=== PATIENT | female | born 1945 | race Caucasian/White ===

== ENCOUNTER 2019-12-24 10:18 | Outpatient (CLI) | payer MEDICARE, SELFPAY ==
--- NOTE | 2019-12-24 10:25 | MM_ITS ---
WS: [id number] BILATERAL SCREENING DIGITAL MAMMOGRAM WITH CAD HISTORY: SCREENING COMPARISON: 12/01/2018 and 13/03/2017 Bilateral CC and MLO views submitted. Computer aided detection analyzed. Breast composition: There are scattered areas of fibroglandular density. No suspicious masses, microc alcifications or architectural distortion. Numerous benign calcifications scattered over each breast. MM/[id number] IMPRESSION: BI-RADS: 2-Benign FOLLOW UP: 1 Year Follow-up
== END 2019-12-24 10:19 | disposition home or self-care (01) ==
LOC: RADSHAW 10:24
PROVIDERS: Family Provider Nurse Practitioner Family; PCP Family Medicine; Visit Provider Nurse Practitioner Family
DX: Z12.31 Encounter for screening mammogram for malignant neoplasm of breast (principal)
CPT/HCPCS: 77067

== ENCOUNTER 2020-02-16 09:12 | Outpatient (CLI) | payer MEDICARE, SELFPAY ==
--- NOTE | 2020-02-16 09:28 | US_ITS ---
WS: [id number] Gallbladder ultrasound, 02/16/2020 Clinical Data: ABD PAIN Comparison: Gallbladder ultrasound, 08/29/2015. Findings: The gallbladder shows no sludge or stone. The wall measures 0.2 cm with no pericholecystic fluid. The common bile duct is 0.4 cm and there are no intrahepatic ductal abnormalities. Liver shows no cysts, masses or dilated intrahepatic ducts. The pancreas is obscured by overlying bowel gas but no cyst, pseudocyst, or evidence of pancreatitis is noted. Right kidney measures 3.95 x 4.29 x 10.3 cm and no cyst, masses or hydronephrosis can be seen. The aorta and inferior vena cava show no vascular abnormalities. US/US abdomen limited [id number] Impression: Negative gallbladder ultrasound.
== END 2020-02-16 09:13 | disposition home or self-care (01) ==
LOC: US 09:15
PROVIDERS: Family Provider Nurse Practitioner Family; PCP Nurse Practitioner Family; Visit Provider Nurse Practitioner Family
DX: R10.11 Right upper quadrant pain (principal)
CPT/HCPCS: 76705

== ENCOUNTER 2020-05-19 09:57 | Outpatient (CLI) | payer MEDICARE, SELFPAY ==
--- NOTE | 2020-05-19 10:41 | MR_ITS ---
WS: [id number] MRI LUMBAR SPINE NONCONTRAST TECHNIQUE: Sagittal T1, T2 and STIR imaging. Axial T1 and T2 imaging. CLINICAL INFORMATION: PAIN OF LUMBAR REGION WITH SCIATICA COMPARISON: None. FINDINGS: Moderate lumbar curve convex right. No acute compression. Slight retrolisthesis L2 on L3, L3 on L4, a nd L4 on L5. No acute compression fractures. L1-L2: Mild disc bulging with slight effacement of ventral thecal sac. Small right foraminal protrusi on with mild right foraminal narrowing. Mild facet arthropathy. Spinal canal is patent. L2-L3: Mild disc bulging with slight effacement of ventral thecal sac. Mild facet arthropathy. Spinal canal and foramen are patent. L3-L4: Disc osteophyte complex with endplate ridging. Slight retrolisthesis L3 on L4. Moderate centra l canal stenosis. Impingement subarticular recess bilaterally. Moderate left and no significant right foraminal narrowing. Moderate facet arthropathy. L4-L5: Mild disc bulging and osteophytic ridging. Slight effacement of ventral thecal sac. Moderate c entral canal stenosis. Impingement traversing right L5 nerve root. Moderate right and no significant left foraminal narrowing. Moderate facet arthropathy with ligament flavum hypertrophy. L5-S1: Mild disc bulging with osteophytic ridging. Impingement on the traversing S1 nerve roots bilat erally. Moderate facet arthropathy with small facet effusions. Moderate right and no significant left foraminal narrowing. Visualized pelvic bony structures: Normal. Paravertebral soft tissues: Normal. Anterior interbody cervical fusion C4-C6 MR/MR lumbar spine wo con* [id number] IMPRESSION: 1. Mild lumbar curve. No acute compression. 2. Moderate central canal stenosis L3-L4 and L4-L5. Mild central canal stenosi s L5-S1. 3. Impingement on the subarticular recess right L3-4, right L4-5, and right gr eater than left L5-S1. 4. Mild to moderate foraminal narrowing worse at left L3-4, right L4-5 and rig ht greater than left L5-S1. 5. Moderate to advanced facet arthropathy L5-S1 with small facet effusions.
== END 2020-05-19 09:58 | disposition home or self-care (01) ==
LOC: RADWPI 10:01
PROVIDERS: Family Provider Nurse Practitioner Family; PCP Nurse Practitioner Family; Visit Provider Nurse Practitioner Family
DX: M54.40 Lumbago with sciatica, unspecified side (principal)
CPT/HCPCS: 72148

== ENCOUNTER 2020-05-25 12:44 | Outpatient (CLI) | payer MEDICARE, SELFPAY ==
--- NOTE | 2020-05-25 12:52 | XR_ITS ---
WS: [id number] LATERAL LUMBAR SPINE: 3 view. Lateral radiographs are performed in upright neutral, flexion and extension to the patient's toleranc e. HISTORY: Low back pain COMPARISON: None available. Severe degenerative disc disease and facet joint arthritis throughout the lumbar spine. L3 retrolisthesis x 10.4 mm with no change with flexion and extension. 2 mm retrolisthesis of L2 and L4 with no instability. L5 anterolisthesis by 4 mm with no instability. XR/XR lumbar spine f/e only [id number] IMPRESSION: 1. Retrolisthesis of L3 x 10.4 mm with no instability. 2. Anterolisthesis of L5 with no instability. 3. Advanced degenerative changes throughout the lumbar spine.
== END 2020-05-25 12:45 | disposition home or self-care (01) ==
LOC: RADWPI 12:50
PROVIDERS: Family Provider Nurse Practitioner Family; PCP Nurse Practitioner Family; Visit Provider Licensed Practical Nurse
DX: M48.062 Spinal stenosis, lumbar region with neurogenic claudication; M51.17 Intervertebral disc disorders with radiculopathy, lumbosacral region
CPT/HCPCS: 72120

== ENCOUNTER → 2020-07-05 09:20 | Outpatient (BNVA) | payer MEDICARE, SELFPAY | PROVIDERS: Family Provider Nurse Practitioner Family; PCP Nurse Practitioner Family; Referring Provider Specialist; Visit Provider Anesthesiology Pain Medicine | DX: M48.062 Spinal stenosis, lumbar region with neurogenic claudication (principal); M47.816 Spondylosis without myelopathy or radiculopathy, lumbar region; M43.16 Spondylolisthesis, lumbar region; M51.36 Other intervertebral disc degeneration, lumbar region; M51.17 Intervertebral disc disorders with radiculopathy, lumbosacral region; Z98.890 Other specified postprocedural states; Z79.891 Long term (current) use of opiate analgesic | CPT/HCPCS: 99205 ==

== ENCOUNTER → 2020-07-11 14:27 | Outpatient (BNVA) | payer MEDICARE, SELFPAY | PROVIDERS: Family Provider Nurse Practitioner Family; PCP Nurse Practitioner Family; Visit Provider Anesthesiology Pain Medicine | DX: M51.17 Intervertebral disc disorders with radiculopathy, lumbosacral region (principal); M48.062 Spinal stenosis, lumbar region with neurogenic claudication; M54.9 Dorsalgia, unspecified; Z79.891 Long term (current) use of opiate analgesic | CPT/HCPCS: 64483; 64484; J1030; J3490 ==

== ENCOUNTER → 2020-07-26 13:15 | Outpatient (BNVA) | payer MEDICARE, SELFPAY | PROVIDERS: Family Provider Nurse Practitioner Family; PCP Nurse Practitioner Family; Visit Provider Anesthesiology Pain Medicine | DX: M48.062 Spinal stenosis, lumbar region with neurogenic claudication (principal); M54.9 Dorsalgia, unspecified; Z79.891 Long term (current) use of opiate analgesic | CPT/HCPCS: 64483; 64484; J1040; J3490 ==

== ENCOUNTER → 2020-08-09 09:12 | Outpatient (BNVA) | payer MEDICARE, SELFPAY | PROVIDERS: Family Provider Nurse Practitioner Family; PCP Nurse Practitioner Family; Visit Provider Anesthesiology Pain Medicine | DX: M48.062 Spinal stenosis, lumbar region with neurogenic claudication (principal); M47.816 Spondylosis without myelopathy or radiculopathy, lumbar region; M51.36 Other intervertebral disc degeneration, lumbar region; M43.16 Spondylolisthesis, lumbar region; M51.17 Intervertebral disc disorders with radiculopathy, lumbosacral region; Z98.890 Other specified postprocedural states | CPT/HCPCS: 99212 ==

== ENCOUNTER → 2020-10-23 07:59 | Outpatient (BNVA) | payer MEDICARE, SELFPAY | PROVIDERS: Family Provider Nurse Practitioner Family; PCP Nurse Practitioner Family; Visit Provider Specialist | DX: M48.062 Spinal stenosis, lumbar region with neurogenic claudication (principal); M47.816 Spondylosis without myelopathy or radiculopathy, lumbar region; M43.16 Spondylolisthesis, lumbar region; G57.32 Lesion of lateral popliteal nerve, left lower limb | CPT/HCPCS: 95886; 95909; 99202; G0463 ==

== ENCOUNTER 2020-11-20 09:56 | Outpatient (CLI) | payer MEDICARE, SELFPAY ==
--- NOTE | 2020-11-20 10:09 | MR_ITS ---
WS: [id number] MRI LUMBAR SPINE NONCONTRAST TECHNIQUE: Sagittal T1, T2 and STIR imaging. Axial T1 and T2 imaging. CLINICAL INFORMATION: INTERVERTEBRAL DISC DISORDER WITH RADICULOPATHY, LUMBAR COMPARISON: MRI May 19, 2020 FINDINGS: Mild lumbar curve. Lumbar curve convex right. Alignment is unchanged from previous. No acute compress ion fractures. Slight retrolisthesis L2 on L3, L3 on L4, L4 on L5 unchanged. No high-grade central ca nal stenosis. L1-L2: Mild annular bulging. Slight narrowing of the subarticular recess bilaterally. Mild facet arth ropathy. Spinal canal and foramen are patent. L2-L3: Mild disc bulging with narrowing of the left subarticular recess. Mild central canal stenosis. Moderate facet arthropathy. Foramen are patent. Slight retrolisthesis unchanged. L3-L4: Disc desiccation. Disc osteophytic ridging results in moderate central canal stenosis. Impinge ment on the right greater than left subarticular recess. Moderate right and mild left bony foraminal narrowing. L4-L5: Mild disc bulging with endplate ridging. Mild central canal stenosis. Impingement on the trave rsing right greater than left L5 nerve roots. Moderate facet arthropathy. Moderate right and mild lef t bony foraminal narrowing. L5-S1: Disc osteophyte complex with endplate ridging. Impingement on the traversing S1 nerve roots bi laterally. Moderate bilateral foraminal narrowing. Small facet effusions. Advanced facet arthropathy . Anterior cervical fusion C4-C6. MR/MR lumbar spine wo con* [id number] IMPRESSION: 1. Mild lumbar curve. No acute compression. 2. Moderate central canal stenosis L3-4 and L4 on L5 unchanged. Impingement on the right articular recess L4-5. 3. Moderate right L3-4, right L4-5, and moderate bilateral L5-S1 foraminal dixon rowing. 4. Advanced facet arthropathy L5-S1 with small facet effusions similar in appe delontee. 5. Slight retrolisthesis L2 on L3 and L3 on L4 unchanged from previous.
== END 2020-11-20 09:57 | disposition home or self-care (01) ==
LOC: RADWPI 10:02
PROVIDERS: PCP Nurse Practitioner Family; Visit Provider Specialist
DX: M51.16 Intervertebral disc disorders with radiculopathy, lumbar region (principal); M48.061 Spinal stenosis, lumbar region without neurogenic claudication; M25.80 Other specified joint disorders, unspecified joint; M48.07 Spinal stenosis, lumbosacral region; M47.897 Other spondylosis, lumbosacral region
CPT/HCPCS: 72148

== ENCOUNTER → 2021-03-30 13:10 | Outpatient (BNVA) | payer MEDICARE, SELFPAY | PROVIDERS: PCP Nurse Practitioner Family; Visit Provider Surgery | DX: Z01.812 Encounter for preprocedural laboratory examination (principal); Z20.822 Contact with and (suspected) exposure to COVID-19 | CPT/HCPCS: 87635 ==

== ENCOUNTER 2021-04-03 07:48 | Day surgery (SDC) | payer MEDICARE, SELFPAY ==
--- NOTE | 2021-03-23 13:42 | SUR.PREOP ---
[id number] spoke with pt and when asked if she had a covid test,stated no one told her she had to have one prior to surgery,call to dr holland's office and stated that his nurse was not in office and dr in wound care. Dr holland called at wound care and he stated that pt will need to be rescheduled due to this,pt called and informed of this and instructed to call dr Laboy office friday am and she verbalized understanding
[2021-04-02 10:33] VITALS: BMI 26.2
[2021-04-03] VITALS (7 sets, daily range): BP systolic 149–176; BP diastolic 77–96; PULSE 78–87; RESP 12–18; TEMP 36.3–37.1; O2SAT 93–99
[2021-04-03] MEDS: sodium chloride 0.9% 1,000 ML 30 ML IV (08:31)
[2021-04-03] MEDS: acetaminophen 1,000 MG/100 ML PIGGYBACK 400 MG IV (08:32)
--- NOTE | 2021-04-03 08:45 | P.ANESASSM_ITS ---
Pre-Anesthetic Assessment Pre-Anesthetic Assessment: Height/Weight: Height 1.5 m Weight 58.967 kg Temp Pulse Resp BP Pulse Ox 97.8 F 86 18 149/80 99 04/03/21 08:16 04/03/21 08:16 04/03/21 08:16 04/03/21 08:16 04/03/21 08:16 Preop Diagnosis: Bleeding hemorrhoids Proposed Procedure: Operation Date: 04/03/21 09:25 Proposed Procedures p Colonoscopy [id number] 67199 Z12.11 K64.9(Not Applicable) - Ramon Crum MD s Exam Under Anesthesia(Not Applicable) - Ramon Crum MD s Hemorroidectomy(Not Applicable) - Ramon Crum MD Familial anesthetic complications: PONV Was Beta Rhea taken within 24 hours: N/A Was Clonidine taken within 24 hours: N/A Last intake: Intake Last Liquid Date 04/02/21 Last Liquid Time 11:00 Last Solid Date 04/02/21 Last Solid Time 11:00 Social: Social History: No alcohol and No tobacco Exam: Pre-Anes Outpt Exam: alert, oriented x 3, clear to auscultation b ilaterally and regular rate & rhythm Airway: Cervical ROM: WNL MP: 2 Dentition: Full Neuropsych: Neuropsych: Neuropathy Anesthetic Plan: ASA status: 2 Anesthesia: General Risk of > 500 ml blood loss (7ml/kg in children): No Meds/Allergies Current Medications: Current Medications Generic Name Dose Route Start Last Admin Trade Name Freq PRN Reason Stop Dose Admin Sodium Chloride 1,000 mls @ 30 ml s/hr 04/03/21 08:15 04/03/21 08:31 Sodium Chloride 0.9% IV 04/04/21 08:14 30 mls/hr .Q24H LUNA Administration PFSH Anesthesia PFSH: Medical History Intervertebral disc disorder with radiculopathy of lumbosacral region Lumbar stenosis with neurogenic claudication Spondylolisthesis, lumbar region Surgical History H/O repair of right rotator cuff History of neck surgery 08/28/2017 C4-C5, C5-C6 ACDFF Family History Denies family history of Anesthesia complication Bleeding disorder Cancer Social History Smoking and tobacco status: never smoked Second hand smoke exposure: No Alcohol intake: never Household members: spouse Marital status: Current occupational status: retired History of recent travel: No Data Anesthesia Cardiac Studies: No Data to Display
--- NOTE | 2021-04-03 09:03 | W.PM.OPSUD ---
Surgery/Procedure H&P Update DATE OF PROCEDURE: April 03, 2021 DATE H&P PERFORMED: 03/19/21 H&P UPDATE INFORMATION: I have reviewed H&P completed within last 30 days, I have examined patient prior to procedure and No changes to prior documentation PREOP DIAGNOSIS: Bleeding hemorrhoids PRIMARY INDICATION FOR PROCEDURE: The same PLANNED PROCEDURE: Operation Date: 04/03/21 09:25 Proposed Procedures p Colonoscopy [id number] Z12.11 K64.9(Not Applicable) - Ramon Crum MD s Exam Under Anesthesia(Not Applicable) - Ramon Crum MD s Hemorroidectomy(Not Applicable) - Ramon Crum MD
[2021-04-03] MEDS: piperacillin-tazobactam 3.375 GM in sodium chloride 0.9% (plus) 50 ML IV (09:25)
--- NOTE | 2021-04-03 10:13 | PM.OP ---
Operative Report Date of procedure: April 03, 2021 Pre-op Diagnosis: Bleeding hemorrhoids Post-op diagnosis: same Post-op Diagnosis: Right lower lateral internal and external hemorrhoid Normal colonoscopy Fair colon prep Procedure Done: 1-Colonoscopy 2-Examination under anesthesia 3-Right lower lateral hemorrhoidectomy Specimens removed/disposition: Right lower lateral hemorrhoid Surgeon: Ramon Crum Stitcher Tape Controlled Machine: process control technician Danny and medical student Zoie Campos Circulating nurse Trice Yoder Anesthesia: General (GETA DIRECTOR DANCE Олег) Estimated blood loss (mL): 5 Condition: stable Disposition: same day Brief History: Bleeding per rectum with symptomatic hemorrhoids. Full H&P and informed consent per chart. Procedure: Patient was identified in the holding area, was taken to the OR placed first in supine position,IV antibiotics were given with induction time-out was done verifying the patient's name, date of , and procedure, all were in agreement. Intubated was placed by the anesthesia provider, patient was placed in left lateral position where all pressure points were padded. Right lower lateral hemorrhoid and a smaller left upper lateral hemorrhoid Following that a digital rectal examination was done, the colonoscope was then introduced via the anus under direct visualization, all the way to the cecum, prep of the colon was fair, there were no polyps identified or masses or diverticular disease or strictures, the scope was then retrieved back ,time for withdrawal exceeded 6 minutes, gas was deflated on the way out. Retroflex was done at the end showing showed right lower lateral internal hemorrhoid. Following that prep and drape of the perineum was done under the usual sterile technique 15 mL of Exparel injection was administered at the perianal area A lubricated self-retaining proctoscope was inserted, and a wet sponge to prevent any residual colon prep from contaminating the site of the excision, and under direct visualization I was able to hold onto the right lower lateral hemorrhoid using hemostats, dissection was carried by harmonic scalpel, hemorrhoidectomy was then achieved and the specimen was passed to the circulating nurse for permanent pathology. Following that a running 2-0 chromic catgut was done to approximate the edges of the hemorrhoid bed. Hemostasis was achieved, irrigation was done, sponge was retrieved. A piece of Surgicel /piece of Xeroform impregnated with lidocaine 2% jelly was placed in the anal canal, attached to 2-0 silk suture, to help retrieving it by the patient later on ABDs were applied followed by surgical pants Patient was repositioned to supine position, counts of instruments,needles and sponges were completed at the end of the procedure Patient was taken to the recovery area in stable condition I was present for the whole entire procedure
--- NOTE | 2021-04-03 10:29 | P.PCN_ITS ---
PACU note PACU note: VSS, Good respiratory effort, report to SENIOR INFORMATICA DEVELOPER Post-Anesthesia Exam: awake
--- NOTE | 2021-04-03 10:29 | PM.PACU ---
PACU note PACU note: VSS, Good respiratory effort, report to CRITICAL POWER TECHNICIAN Post-Anesthesia Exam: awake
--- NOTE | 2021-04-03 10:34 | SUR.PHASEI ---
1033- ORAL AIRWAY REMOVED, SAT 96% WITH ROOM AIR
--- NOTE | 2021-04-03 14:30 | ANE.PACU2 ---
Inpatient post-anesthesia follow up: Airway intact: Yes Vital signs: Temperature 97.8 F Pulse Rate 78 Respiratory Rate 18 Blood Pressure 151/77 Pulse Oximetry 97 Oxygen Delivery Me thod Room Air Oxygen Flow Rate Fraction of Inspir ed Oxygen Hydration adequate: Yes Nausea and vomiting: No Pain level: 2 Mental status: Baseline
== END 2021-04-03 11:33 | disposition home or self-care (01) ==
PROVIDERS: PCP Nurse Practitioner Family; Visit Provider Surgery
PROC: 0DJD8ZZ Inspection of Lower Intestinal Tract, Via Natural or Artificial Opening Endoscopic (ICD-10-PCS; CPT 45378; principal; 2021-04-03 09:15)
PROC: (CPT 46255; 2021-04-03 09:15)
PROC: (CPT 46255; 2021-04-03 09:15)
DX: K64.8 Other hemorrhoids (principal); K57.30 Diverticulosis of large intestine without perforation or abscess without bleeding
CPT/HCPCS: 46255; 88304; 96365; C9290; J0330; J1100; J2405; J2543; J2704; J3010; J3490; J7030

== ENCOUNTER 2021-06-14 13:07 | Outpatient (CLI) | payer MEDICARE, SELFPAY ==
--- NOTE | 2021-06-14 13:18 | XR_ITS ---
WS: [id number] Left leg including the tibia and fibula, AP and lateral views, 06/14/2021 Clinical Data: LT LEG PAIN Comparison: None. Findings: No fractures or dislocations are seen. The tibia and fibula are intact. The soft tissues are normal. No soft tissue mass is seen. The visualized left knee and left ankle are unremarkable. XR/XR tibia fibula LT 2V [id number] Impression: Negative left leg with no evidence of soft tissue abnormality.
== END 2021-06-14 13:08 | disposition home or self-care (01) ==
PROVIDERS: PCP Nurse Practitioner Family; Visit Provider Nurse Practitioner Family
DX: M79.605 Pain in left leg (principal)
CPT/HCPCS: 73590

== ENCOUNTER 2021-07-20 07:37 | Outpatient (CLI) | payer MEDICARE, SELFPAY ==
--- NOTE | 2021-07-20 07:49 | US_ITS ---
WS: [id number] ULTRASOUND SOFT TISSUES LEFT lower extremity. HISTORY: LEFT LEG PAIN COMPARISON: None available. TECHNIQUE: 2-D and color Doppler imaging is submitted. Palpable area over the anterior LEFT lower extremity is evaluated by ultrasound. There is a hypoechoi c ovoid solid nodule measuring 1.3 x 0.5 x 1.0 cm. No significant increased vascularity. This is a ve ry nonspecific nodule. US/US soft tissue/extremity [id number] IMPRESSION: Nonspecific hypoechoic nodule in the soft tissues of the anterior LEFT lower le g.
--- NOTE | 2021-07-20 08:35 | MM_ITS ---
WS: [id number] Exam: [id number] Date/Time of Exam: 07/20/2021 8:35 AM Reason For Exam: SCREENING VIEWS: MLO and CC views both breasts. Comparison made with prior exam of 10/27/2017, 12/01/2018 and 12/24/2019. Findings: There was no sign of mass, architectural distortion or suspicious calcification in either breast. Fa tty MM/[place] [id number] Impression: BI-RADS: 2-Benign FOLLOW-UP: 1 Year Follow-up This mammogram was also analyzed by the Computer Aided Detection System R2 Imag e [employer]sperson.
== END 2021-07-20 07:38 | disposition home or self-care (01) ==
LOC: RAD 07:54 → RADSHAW 08:29
PROVIDERS: PCP Nurse Practitioner Family; Visit Provider Nurse Practitioner Family
DX: Z12.31 Encounter for screening mammogram for malignant neoplasm of breast (principal); M79.605 Pain in left leg; R22.42 Localized swelling, mass and lump, left lower limb
CPT/HCPCS: 76882; 77067

== ENCOUNTER → 2023-09-29 14:37 | Outpatient (BNVA) | payer MEDICARE, SELFPAY | PROVIDERS: PCP Nurse Practitioner Family; Visit Provider Surgery | DX: R10.11 Right upper quadrant pain (principal); R11.2 Nausea with vomiting, unspecified | CPT/HCPCS: 99203 ==

== ENCOUNTER 2023-10-02 09:15 | Day surgery (SDC) | payer MEDICARE, SELFPAY ==
--- NOTE | 2023-10-02 09:43 | W.PM.OPSUD ---
Surgery/Procedure H&P Update DATE OF PROCEDURE: October 02, 2023 DATE H&P PERFORMED: 03/19/21 H&P UPDATE INFORMATION: I have reviewed H&P completed within last 30 days, I have examined patient prior to procedure, No changes to prior documentation and [place] is [place] [facility] indicated PLANNED PROCEDURE: Operation Date: 10/02/23 10:50 Proposed Procedures p EGD(Not Applicable) - eKith Meyer MD
[2023-10-02 09:49] VITALS: BP 179/94; PULSE 82; RESP 18; TEMP 36.2; O2SAT 97; BMI 25.2
[2023-10-02] MEDS: sodium chloride 0.9% 1,000 ML 30 ML IV (09:59)
--- NOTE | 2023-10-02 11:00 | ANES.PREANE2 ---
Pre-Anesthetic Assessment Height/Weight: Height 1.5 m Weight 56.699 kg Temp Pulse Resp BP Pulse Ox O2 Del Method 97.2 F L 82 18 179/94 97 Room Air 10/02/23 09:49 10/02/23 09:49 10/02/23 09:49 10/02/23 09:49 10/02/23 09:49 10/02/23 09:49 Preop Diagnosis: vomiting Operation Date: 10/02/23 10:50 Proposed Procedures p EGD(Not Applicable) - Keith Meyer MD Familial anesthetic complications: posy op nausea vomiting Was Beta Rhea taken within 24 hours: N/A Was Clonidine taken within 24 hours: N/A Last intake: Intake Last Liquid Date 10/01/23 Last Liquid Time 18:30 Last Solid Date 10/01/23 Last Solid Time 13:00 Social No alcohol and No tobacco smokes marijuana daily Exam alert, oriented x 3, clear to auscultation bilaterally and regular rate & rhythm Airway Submandibular: within normal limits Cervical ROM: within normal limits Mallampati: Class II Dentition: chipped and full History/ROS No significant complaints Pulmonary None reported CV/HEM None reported None reported Hepatic None reported GI Gastroesophageal Reflux Disease (controlled) Metabolic None reported Musc/skel Lower Back Pain and Osteoarthritis/DJD Anesthetic Plan ASA status: 2 Anesthesia: MAC Risk of > 500 ml blood loss (7ml/kg in children): No Medications/Allergies Home Medications Medication Instructions Recorded Confirmed Last Taken Type cholecalciferol (vitamin D3) 25 2,000 unit PO DAILY 12/01/19 10/02/23 10/01/23 History mcg (1,000 unit) capsule glucosamine HCl 1,500 mg tablet 1,500 mg PO DAILY 12/01/19 10/02/23 10/01/23 History ltszwgct-xkr-piwni acid 0.4 1 tab PO QAM 12/01/19 10/02/23 10/01/23 History mg-lycopene 300 mcg-lutein 250 mcg tablet (Centrum Silver) vitamin E mixed-tocotrienol 120 1 cap PO DAILY 12/01/19 10/02/23 10/01/23 History unit-17 mg capsule cyclobenzaprine 10 mg tablet 10 mg PO .TID PRN #21 tabs 01/26/20 10/02/23 04/02/21 Rx lisinopril 20 mg tablet 20 mg PO DAILY #90 tabs 01/28/20 10/02/23 10/01/23 Rx ondansetron HCl 4 mg tablet 4 mg PO Q8H 09/29/23 10/02/23 Unknown History pantoprazole 40 mg tablet,delayed 40 mg PO DAILY 10/01/23 10/02/23 10/01/23 History release tramadol 50 mg tablet 50 mg PO BID PRN Pain 10/01/23 10/02/23 10/01/23 History Allergies Allergy/AdvReac Type Severity Reaction Status Date / Time codeine Allergy Unknown Verified 09/29/23 14:42 gabapentin AdvReac Severe ADR-Nausea Verified 09/29/23 14:42 Current Medications Generic Name Dose Route Start Last Admin Trade Name Freq PRN Reason Stop Dose Admin Sodium Chloride 1,000 mls @ 30 mls/hr 10/02/23 09:45 10/02/23 09:59 Sodium Chloride 0.9% IV 10/03/23 09:44 30 mls/hr .Q24H LUNA Administration PFSH Anesthesia Medical History Bleeding hemorrhoids Intervertebral disc disorder with radiculopathy of lumbosacral region Lumbar stenosis with neurogenic claudication Spondylolisthesis, lumbar region Surgical History H/O repair of right rotator cuff History of neck surgery 08/28/2017 C4-C5, C5-C6 ACDFF Family History Denies family history of Anesthesia complication Bleeding disorder Cancer Social History Smoking and tobacco/nicotine status: never used tobacco/nicotine Second hand smoke exposure: No Alcohol intake: never Substance/Drug Use: never Household members: spouse Marital status: Current occupational status: retired Data Anesthesia Cardiac Studies: No Data to Display
[2023-10-02 12:32] VITALS: BP 125/74; PULSE 88; RESP 15; TEMP 36.3; O2SAT 95
[2023-10-02 12:47] VITALS: BP 159/80; PULSE 86; RESP 16; O2SAT 96
--- NOTE | 2023-10-02 12:58 | ANE.PACU2 ---
Inpatient post-anesthesia follow up: Airway intact: Yes Vital signs: Temperature 97.4 F Pulse Rate 86 Respiratory Rate 16 Blood Pressure 159/80 Pulse Oximetry 96 Oxygen Delivery Me thod Room Air Oxygen Flow Rate Fraction of Inspir ed Oxygen Hydration adequate: Yes Nausea and vomiting: No Pain level: 2 Mental status: Baseline
== END 2023-10-02 12:22 | disposition home or self-care (01) ==
PROVIDERS: PCP Nurse Practitioner Family; Visit Provider Surgery
PROC: 0DJ08ZZ Inspection of Upper Intestinal Tract, Via Natural or Artificial Opening Endoscopic (ICD-10-PCS; CPT 43235; principal; 2023-10-02 10:50)
DX: R11.10 Vomiting, unspecified (principal); K44.9 Diaphragmatic hernia without obstruction or gangrene; K21.9 Gastro-esophageal reflux disease without esophagitis; K29.50 Unspecified chronic gastritis without bleeding
CPT/HCPCS: 43239; 88305; 88342; J2704; J7030

== ENCOUNTER 2024-02-07 09:59 | Inpatient (IN) | payer MEDICARE, SELFPAY ==
[2024-02-07] VITALS (8 sets, daily range): BP systolic 105–171; BP diastolic 63–104; PULSE 80–116; RESP 14–18; TEMP 36.4–37; O2SAT 93–98; BMI 24.2
--- NOTE | 2024-02-07 10:01 | XRR_ITS ---
PROCEDURE INFORMATION: Exam: XR Right Femur Exam date and time: 02/07/2024 10:11 AM Age: 78 years old Clinical indication: Injury or trauma; Fall; Blunt trauma; Thigh or upper leg; Right; Additional info: Pain TECHNIQUE: Imaging protocol: Radiologic exam of the right femur. Views: 2 views. COMPARISON: CR XR hip RT 2-3V wo/w pel* [id number] 02/07/2024 10:11 AM FINDINGS: Bones/joints: Osteopenia. Acute subcapital fracture of the right femoral neck with moderate superior translation of the femoral shaft. No dislocation. Mild right hip joint osteoarthrosis. No erosive or destructive change. No lytic or blastic lesion. Soft tissues: Grossly unremarkable. XR/XR femur RT min 2V* [id number] IMPRESSION: 1. Right femoral neck fracture, as described above. 2. Additional findings, as above.
--- NOTE | 2024-02-07 10:01 | XRR_ITS ---
PROCEDURE INFORMATION: Exam: XR Right Hip Exam date and time: 02/07/2024 10:11 AM Age: 78 years old Clinical indication: Injury or trauma; Fall; Blunt trauma (contusions or hematomas); Right; Hip TECHNIQUE: Imaging protocol: Radiologic exam of the right hip. Views: 1 view hip with pelvis when performed. COMPARISON: CR XR femur RT min 2V* [id number] 02/07/2024 10:11 AM FINDINGS: Bones/joints: Osteopenia. Acute subcapital fracture of the right femoral neck with moderate superior translation of the femoral shaft. No dislocation. Mild right hip joint osteoarthrosis. No erosive or destructive change. No lytic or blastic lesion. Degenerative changes of the lower lumbar spine, right sacroiliac joint and pubic symphysis. Soft tissues: Grossly unremarkable. XR/XR hip RT 2-3V wo/w pel* [id number] IMPRESSION: 1. Right femoral neck fracture, as described above. 2. Additional findings, as above.
--- NOTE | 2024-02-07 10:02 | ECG_ITS ---
[facility] Test Date: 2024-02-07 Pat Name: Anyi Conrad Department: Room: Gender: Female Network Designer: : 1945 Requested By: Jem Roque Order Number: [id number] Dory MD: Tim Arita M.D. Measurements Intervals Annabella Rate: 102 P: 60 WY: 142 QRS: -6 QRSD: 89 T: 11 QT: 357 QTc: 467 Interpretive Statements SINUS TACHYCARDIA WITH FREQUENT VENTRICULAR PREMATURE COMPLEXES ABNORMAL RHYTHM ECG Compared to ECG 08/22/2017 09:33:40 Ventricular premature complex(es) now present Sinus rhythm no longer present Electronically Signed On 02-08-2024 21:32:34 CDT by Tim Arita M.D. [email or web address]
--- NOTE | 2024-02-07 10:10 | CT_ITS ---
WS: [id number] CT CERVICAL SPINE HISTORY: trauma TECHNIQUE: Contiguous 2.0 mm axial imaging performed through the entire cervical spine. Sagittal and coronal reformats also performed. All CT scans at [facility] use at least one of these dose o ptimization techniques: automated exposure control; mA and/or kV adjustment per patient size (include s targeted exams where dose is matched to clinical indication); or iterative reconstruction. DLP: 1574.32 mGy.cm COMPARISON: 10/22/2017 Anterior cervical fusion from C4-C7 with interbody spacers. No acute fractures. Facet joints are norm ally aligned. Craniocervical junction is normal. Lateral masses are aligned of C1 and C2. The odontoi d process is intact. C2-C3: Normal. C3-C4: Mild RIGHT foraminal narrowing due to osteophyte. C4-C5: Mild osteophytic ridging with bilateral foraminal stenosis. C5-C6: Osteophytic ridging with bilateral foraminal stenosis, LEFT greater than RIGHT. C6-C7: Moderate osteophytic ridging. Mild central and moderate foraminal stenosis. C7-T1: Mild foraminal stenosis. Paraseptal emphysema at the lung apices. Small amount of calcium in the aorta. IMPRESSION: 1. No acute cervical spine fracture. 2. Prior anterior cervical fusion from C4-C7 with interbody spacers.
--- NOTE | 2024-02-07 10:11 | CT_ITS ---
WS: [id number] CT HEAD NONCONTRAST HISTORY: trauma TECHNIQUE: Contiguous axial imaging performed through the brain in 2.5 mm imaging. Bone and soft tiss ue windows. Sagittal and coronal reformats reviewed. All CT scans at [facility] use at least one of these dose optimization techniques: automated exposure control; mA and/or kV adjustment per pa tient size (includes targeted exams where dose is matched to clinical indication); or iterative recon struction. DLP: 1574.32 mGy.cm COMPARISON: 08/15/2015 No acute intracranial hemorrhage, midline shift or mass effect. Mild atrophy and small vessel ischemic disease surrounding the ventricles. No prior infarcts. Ventricles: Mild ventricular dilatation on the basis of atrophy. Paranasal sinuses: As visualized are clear. Mastoid air cells: Well pneumatized. Calvarium and scalp: Skull is intact with no soft tissue edema or swelling. IMPRESSION: 1. No acute intracranial hemorrhage or edema. 2. Mild cerebral atrophy and small vessel ischemic disease.
--- NOTE | 2024-02-07 10:11 | XRR_ITS ---
PROCEDURE INFORMATION: Exam: XR Left Knee Exam date and time: 02/07/2024 10:19 AM Age: 78 years old Clinical indication: Injury or trauma; Fall; Blunt trauma; Knee; Left TECHNIQUE: Imaging protocol: Radiologic exam of the left knee. Views: 3 views. COMPARISON: US soft tissue/extremity [id number] 07/20/2021 8:09 AM FINDINGS: Bones/joints: Osteopenia. No radiographic evidence of acute fracture or dislocation. Alignment anatomic. Minimal patellofemoral osteoarthrosis. Minimal medial and lateral compartment osteophytosis. No significant effusion. Soft tissues: Grossly unremarkable. XR/XR knee LT 3V* [id number] IMPRESSION: No acute radiographic findings.
--- NOTE | 2024-02-07 10:11 | XRR_ITS ---
PROCEDURE INFORMATION: Exam: XR Chest Exam date and time: 02/07/2024 10:22 AM Age: 78 years old Clinical indication: Injury or trauma; Fall; Cough and dyspnea; Blunt trauma (contusions or hematomas); Additional info: Dyspnea/cough TECHNIQUE: Imaging protocol: Radiologic exam of the chest. Views: 1 view. COMPARISON: CR XR chest 2V* [id number] 08/22/2017 9:36 AM FINDINGS: Lungs: Unremarkable. No consolidation. Pleural spaces: Unremarkable. No pleural effusion. No pneumothorax. Heart/Mediastinum: Unremarkable. No cardiomegaly. Bones/joints: Osteopenia. Mild degenerative changes. Suture anchor in the right humeral head. Partially visualized anterior cervical fixation hardware. XR/XR chest 1V portable [id number] IMPRESSION: No acute radiographic findings.
--- NOTE | 2024-02-07 10:12 | ED_ITS ---
HPI - Extremity Problem 2 General: Chief complaint: Extremity Injury, Lower Stated complaint: RIGHT FEMUR PAIN S/P FALL Time Seen by Provider: 02/07/24 10:01 Source: patient Mode of arrival: EMS History of Present Illness: 78-year-old female brought in by EMS. 3 days ago she had a fall on the stairs and was unable to stand after the fall she was found prone she been trying to crawl back up the stairs to get to her phone but was not able to do so. She denies loss of consciousness she is complaining of right hip pain left knee pain generalized myalgias throughout. She is not on any anticoagulants. She does have a history of hypertension she is on lisinopril but has not taken any of her medications for the last 4 days. She has shortening and external rotation of her right hip. She was given Dilaudid and Zofran and nebulized ketamine and route. No vomiting no diarrhea no chest pain no abdominal pain no shortness of breath MD Complaint: joint pain Onset (ago): day(s) (3) Pain Consistency: constant Location: right (hip) Quality: sharp Radiation: none Relieving factors: nothing Exacerbating factors: nothing Associated symptoms: Deny arthralgias, chest pain, fever(s), myalgias, rash or short of breath Review of Systems 2 Const: Denies: fever(s) or chills Card: Denies: chest pain Resp: Denies: dyspnea GI: Denies: abdominal pain : Denies: dysuria, urinary frequency or urinary urgency Musc: Reports: joint pain; Denies: neck pain or back pain Skin/Breast: Denies: rash PFSH ED 2 PFSH: Medical History Bleeding hemorrhoids Spondylolisthesis, lumbar region Lumbar stenosis with neurogenic claudication Intervertebral disc disorder with radiculopathy of lumbosacral region Surgical History History of neck surgery 08/28/2017 C4-C5, C5-C6 ACDFF H/O repair of right rotator cuff Family History Denies family history of Anesthesia complication Bleeding disorder Cancer Social History (Reviewed 02/07/24 @ 10:12 by GATO Caballero Smoking and tobacco/nicotine status: never used tobacco/nicotine Second hand smoke exposure: No Alcohol intake: never Substance/Drug Use: never Household members: spouse Marital status: Current occupational status: retired Physical Exam 2 Const: GENERAL APPEARANCE: cooperative ORIENTATION/CONSCIOUSNESS: Yes awake, Yes oriented to person, Yes oriented to place and Yes oriented to time HENMT: COMMON NORMALS: normocephalic, atraumatic and hearing grossly normal bilaterally HEAD & SCALP: normocephalic and atraumatic Resp: COMMON NORMALS: normal respiratory effort, No retractions, No use of accessory muscles and clear to auscultation bilaterally AUSCULTATION: clear to auscultation bilaterally Cardio: COMMON NORMALS: regular rate, regular rhythm and No murmurs present (Cardio) RATE: regular rate RHYTHM: regular rhythm GI: COMMON NORMALS: Soft to palpation and No hepatosplenomegaly present A USCULTATION: Yes normoactive bowel sounds PALPATION: Yes Soft to palpation, No Tenderness to palpation present (GI), No Guarding due to palpation present (GI) and Yes No hepatosplenomegaly present Extremity: COMMON NORMALS: normal to inspection, capillary refill normal, no clubbing, cyanosis or edema, no calf tenderness and no pedal edema OTHER: External rotation and shortening of the right leg no other deformities no skin breakdown or ulceration noted Neuro: SENSORIUM/ORIENTATION: Yes oriented to person, Yes oriented to place and Yes oriented to time Skin: COMMON NORMALS: no rashes or lesions noted GENERAL SKIN EXAM: no rashes or lesions noted Course 2 Vital Signs: Vital signs: Vital Signs Temperature 97.7 F 02/07/24 10:01 Pulse Rate 94 02/07/24 12:47 Respiratory Rate 18 02/07/24 12:47 Blood Pressure 154/97 02/07/24 12:47 Pulse Oximetry 95 02/07/24 12:47 Oxygen Delivery Me thod Room Air 02/07/24 12:47 MDM - Extremity (Nontraumatic) Medical Decision Making Patient is a right subtrochanteric hip fracture is result of a fall on the plain film without any seen an intertrochanteric component of the CT does not show any fracture in the trochanter. Will admit. splint to the right forearm for the distal radius fracture. Randolph placed. pain medicines given Medical Records I reviewed the patient's medical records. Lab Data I reviewed the patient's lab results. 02/07/24 11:13 02/07/24 11:13 Radiology Impressions Venous Duplex 02/07/24 10:25 IMPRESSION: No sonographic evidence of deep vein thrombosis. All radiology interpretation(s) finalized by discharge Discharge Plan Discharge Patient Disposition: Admitted As Inpatient Admit Provider: Maddi Jaime Clinical Impression: Closed subcapital fracture of neck of right femur, Distal radius fracture, right, Rhabdomyolysis Condition: Stable Coding Level of Care Code ED Quality Systems Specialist for Shayna Thomason
--- NOTE | 2024-02-07 10:25 | USR_ITS ---
PROCEDURE INFORMATION: Exam: US Duplex Lower Extremity Veins, Bilateral Exam date and time: 02/07/2024 12:08 PM Age: 78 years old Clinical indication: Edema, localized; Lower extremity, bilateral; Additional info: Leg edema TECHNIQUE: Imaging protocol: Real-time duplex ultrasound of the bilateral extremities with 2-D calloway scale, color Doppler flow and spectral waveform analysis including responses to compression and other maneuvers (when performed) with image documentation. Complete exam focused on the lower extremity veins. COMPARISON: US soft tissue/extremity [id number] 07/20/2021 8:09 AM FINDINGS: Right deep veins: Unremarkable. The common femoral, femoral, proximal profunda femoral, popliteal and peroneal veins are patent without thrombus. Normal Doppler waveforms. Normal compressibility and/or augmentation response. Left deep veins: Unremarkable. The common femoral, femoral, popliteal and peroneal veins are patent without thrombus. Normal Doppler waveforms. Normal compressibility and/or augmentation response. Superficial veins: Greater saphenous veins at the saphenofemoral junctions are patent bilaterally without thrombus. Soft tissues: Unremarkable. US/CV venous duplex [facility] [id number] IMPRESSION: No sonographic evidence of deep vein thrombosis.
--- NOTE | 2024-02-07 10:25 | CT_ITS ---
[facility]AST HISTORY: hip fx Technique: All CT scans at [facility] use at least one of these dose optimization techniques: automated exposure control; mA and/or kV adjustment per patient size (includes targeted exams where dose is matched to clinical indication); or iterative reconstruction. DLP: 234.41 mGy.cm COMPARISON: Radiograph 02/07/2024 Acute comminuted fracture involving the femoral neck of the RIGHT hip. There is impaction along the f racture line and valgus deformity. Lateral displacement by approximately 10 mm the distal fragment al yoseph with impaction. There are a few small osseous fragments along the fracture line. The acetabulum i s normal. Moderate amount of periarticular hematoma surrounding the fracture. Randolph catheter is present in the urinary bladder. IMPRESSION: Acute femoral neck fracture with impaction and lateral displacement.
[2024-02-07 11:07] LABS: Add Urine Culture? No; Add Urine Microscopic? YES; Bacteria Urine TRACE /hpf; Bilirubin Urine Neg (Negative); Blood Urine Trace (Negative); Glucose Urine UA Norm (Normal); Ketones Urine 2+ (Negative); Leukocyte Esterase Urine Negative (Negative); Nitrate Urine Negative (Negative); Protein Urine 1+ (Negative); RBC Urine 0-4 /hpf (0-2); Squamous Epithelial Cell Urine RARE /hpf (0-5); Urine Appearance Clear (CLEAR); Urine Color Dark Yellow (Yellow); Urobilinogen Urine Norm (Negative); WBC Urine 0-4 /hpf (0-5); pH Urine 5 (5-7)
[2024-02-07 11:20] LABS: Basophils # 0.1 10^3/uL (0.0-0.1); Basophils % 0.3 %; Hematocrit 43.2 % (36-47); Lymphocytes # 1.6 10^3/uL (0.8-4.8); Lymphocytes % 8.8 %; Mean Corpuscular HGB Conc 32.9 g/dL (30-55); Mean Corpuscular Volume 94.3 fl (85-98); Mean Platelet Volume 10.3 fL (7.4-10.4); Monocytes % 10.9 %; Neutrophils # 14.39 10^3/uL (1.8-7.7); Neutrophils % 79.5 %; Nucleated Red Blood Cells % 0 %; Platelet Count 279 10^3/cmm (157-399); Red Blood Count 4.58 10^6/uL (3.85-5.65); Red Cell Distribution Width 15.1 % (12.1-15.1)
--- NOTE | 2024-02-07 11:33 | XRR_ITS ---
PROCEDURE INFORMATION: Exam: XR Right Hand Exam date and time: 02/07/2024 11:54 AM Age: 78 years old Clinical indication: Injury or trauma; Fall; Blunt trauma (contusions or hematomas); Hand; Right TECHNIQUE: Imaging protocol: Radiologic exam of the right hand. Views: 3 or more views. COMPARISON: US soft tissue/extremity [id number] 07/20/2021 8:09 AM FINDINGS: Bones/joints: Comminuted, displaced and impacted intra-articular fracture of the distal radius use. Age-indeterminate fracture of the ulnar styloid, likely chronic. No dislocation. Degenerative changes, most severe at the thumb carpometacarpal articulation, as well as the thumb metacarpophalangeal joint, thumb interphalangeal joint and 2nd and 3rd distal interphalangeal joints. No convincing erosive or destructive change. No lytic or blastic lesion. Soft tissues: Soft tissue swelling. XR/XR hand RT min 3V* [id number] IMPRESSION: 1. Distal radius fracture, as described above. 2. Additional findings, as above.
--- NOTE | 2024-02-07 11:33 | XRR_ITS ---
PROCEDURE INFORMATION: Exam: XR Right Wrist Exam date and time: 02/07/2024 12:00 PM Age: 78 years old Clinical indication: Injury or trauma; Fall; Blunt trauma (contusions or hematomas); Wrist; Right TECHNIQUE: Imaging protocol: Radiologic exam of the right wrist. Views: 3 or more views. COMPARISON: CR XR hand RT min 3V* [id number] 02/07/2024 11:54 AM FINDINGS: Bones/joints: Comminuted, displaced and impacted intra-articular fracture of the distal radius use. Age-indeterminate fracture of the ulnar styloid, likely chronic. No dislocation. Degenerative changes, most severe at the thumb carpometacarpal articulation, as well as the thumb metacarpophalangeal joint. No convincing erosive or destructive change. No lytic or blastic lesion. Soft tissues: Soft tissue swelling. XR/XR wrist RT min 3V* [id number] IMPRESSION: 1. Distal radius fracture, as described above. 2. Additional findings, as above.
[2024-02-07] MEDS: sodium chloride 0.9% 1,000 ML 999 ML IV (11:39)
[2024-02-07 11:44] LABS: Alanine Aminotransferase 31 U/L (0-33); Albumin Level 4.3 g/dL (3.5-5.2); Alkaline Phosphatase 77 U/L (35-105); Anion Gap 22.7 (5-19); Aspartate Amino Transferase 61 U/L (0-32); Blood Urea Nitrogen 23 mg/dL (8-23); Calcium 9.3 mg/dL (8.5-10.5); Carbon Dioxide 24 mmol/L (22-29); Chloride 97 mmol/L (98-107); Creatinine Clr Calc Pharmacy 48.9973; Globulin 2.7 g/dL (1.3-4.6); Glucose 119 mg/dL (65-115); Osmolality Calculated 295 mOsm/kg (285-295); Potassium 3.7 mmol/L (3.5-5.1); Sodium 140 mmol/L (136-145); Total Bilirubin 0.6 mg/dL (0.15-1.2)
[2024-02-07 11:45] LABS: Troponin(5th) Baseline 23 ng/L (0-10)
[2024-02-07 12:12] LABS: Creatine Phosphokinase 2508 U/L (26-192)
--- NOTE | 2024-02-07 13:41 | ECG_ITS ---
[facility] Test Date: 2024-02-07 Pat Name: Anyi Conrad Department: Room: 260 Gender: Female Final Canoe Inspector: : 1945 Requested By: Jem Roque Order Number: [id number] Dory MD: Tim Arita M.D. Measurements Intervals [place] Rate: 108 P: 57 OK: 147 QRS: -6 QRSD: 88 T: -9 QT: 353 QTc: 474 Interpretive Statements SINUS TACHYCARDIA WITH FREQUENT VENTRICULAR PREMATURE COMPLEXES ABNORMAL RHYTHM ECG Compared to ECG 02/07/2024 11:45:40 No significant changes Electronically Signed On 02-08-2024 21:46:39 CDT by Tim Arita M.D. [email or web address]
--- NOTE | 2024-02-07 13:53 | P.HP_ITS ---
Providers/Chief Complaint 2 Admitting Physician: Maddi Jaime MD Primary Care Provider: Richa Andujar APN Chief Complaint: RIGHT FEMUR PAIN S/P FALL History of Present Illness Anyi Conrad is a 78 year old female with past medical history of hypertension presented to the hospital after being found on the bottom of her staircase due to sustaining a fall 3 days ago. She says her life alert was in the bathroom and she could not know if anybody. She does have 2 dogs at home. Her stairs are tiled and an area of it was missing grout and therefore she tripped and fell. It was purely mechanical fall. Denies feeling dizzy or nauseous prior to falling. Other than history of hypertension and taking lisinopril at home she has no other complaints. Denies having an IA in the past. Denies being diabetic. Says her 2 years ago he had right after that she saw her dormitory keeper and got all her affairs in order. She is to be DNR/DNI. In the ER she was found to have a acute femoral neck fracture with impaction and lateral displacement and a distal radial fracture. Splint to right forearm in ER. Pain medication given, Randolph placed. Dr. Malloy notified. Patient to go for surgery tomorrow. Knee x-ray, femur x-ray, hip pelvis x-ray, chest x-ray official reports are pending at this time. Patient is on room air at this time. Medications/Allergies Home Medications Medication Instructions Recorded Confirmed Last Taken Type cholecalciferol (vitamin D3) 25 2,000 unit PO DAILY 12/01/19 02/07/24 10/01/23 History mcg (1,000 unit) capsule glucosamine HCl 1,500 mg tablet 1,500 mg PO DAILY 12/01/19 02/07/24 10/01/23 History mgsbqtmj-ipi-ptcla acid 0.4 1 tab PO QAM 12/01/19 02/07/24 10/01/23 History mg-lycopene 300 mcg-lutein 250 mcg tablet (Centrum Silver) vitamin E mixed-tocotrienol 120 1 cap PO DAILY 12/01/19 02/07/24 10/01/23 History unit-17 mg capsule lisinopril 20 mg tablet 20 mg PO DAILY #90 tabs 01/28/20 02/07/24 10/01/23 Rx ondansetron HCl 4 mg tablet 4 mg PO Q8H 09/29/23 02/07/24 Unknown History pantoprazole 40 mg tablet,delayed 40 mg PO DAILY 10/01/23 02/07/24 10/01/23 History release tramadol 50 mg tablet 50 mg PO BID PRN Pain 10/01/23 02/07/24 10/01/23 History cyclobenzaprine 10 mg tablet 10 mg PO TID PRN Muscle Spasm 02/07/24 02/07/24 Unknown History Allergies Allergy/AdvReac Type Severity Reaction Status Date / Time codeine Allergy Unknown Verified 02/07/24 10:07 gabapentin AdvReac Severe ADR-Nausea Verified 02/07/24 10:07 PFSH Acute 2 PFSH: Medical History Bleeding hemorrhoids Spondylolisthesis, lumbar region Lumbar stenosis with neurogenic claudication Intervertebral disc disorder with radiculopathy of lumbosacral region Surgical History History of neck surgery 08/28/2017 C4-C5, C5-C6 ACDFF H/O repair of right rotator cuff Family History Denies family history of Anesthesia complication Bleeding disorder Cancer Social History Smoking and tobacco/nicotine status: never used tobacco/nicotine Second hand smoke exposure: No Alcohol intake: never Substance/Drug Use: never Household members: spouse Marital status: Current occupational status: retired Vitals/I&O/Wt Last Vital Signs Temp 97.7 F 02/07/24 10:01 Pulse 94 02/07/24 12:47 Resp 18 02/07/24 12:47 BP 154/97 02/07/24 12:47 Pulse Ox 95 02/07/24 12:47 O2 Del Method Room Air 02/07/24 12:47 Weight last 48 hrs Weight 54.431 kg Physical Exam 2 Narrative: General: Alert oriented x3, patient seen laying in bed appearing comfortable at this time HEENT: Normocephalic, atraumatic, EOMI, breathing room air. Cardio: Regular rate rhythm, normal S1-S2 Respiratory: Good bilateral air entry, no wheezes no rhonchi appreciated GI: Abdomen soft, nontender, nondistended, bowel sounds + Extremities: Right leg shortened and externally rotated. Urinary Catheter Management: Randolph: Cath Placed During This Visit: yes Urinary Catheter Date of Insertion: 02/07/24 Urinary Catheter Time of Insertion: 10:42 Data 02/07/24 11:13 02/07/24 11:13 A&P Assessment and plan (1) Distal radius fracture, right: (2) Closed subcapital fracture of neck of right femur: (3) H/O cervical spine surgery: (4) Rhabdomyolysis: (5) Hypertension: Plan #Acute right femoral neck fracture, displaced #Distal radius fracture right side #Hypertension #GERD #Mild rhabdomyolysis from immobilization ? Consult orthopedic surgery. Surgery in a.m. ? Check PT/INR ? Check preop labs and images. Chest x-ray, CBC CMP magnesium ? Check EKG?sinus rhythm with frequent PVCs. ? Denies any other complaints at this time. ? Ultrasound bilateral lower extremities ruled out DVT ? CPK 2500. Continue IV fluids normal saline 100 cc/h ? DNR/DNI ? Cardiac diet ordered for now ? N.p.o. except meds at midnight ? I will hold lisinopril at this time as patient going for surgery in a.m. ? Will switch her to amlodipine 10 daily. ? Morphine 4 mg IV for every 4 hours as needed for pain ? Zofran for nausea ? PT OT after surgery ? Initial troponin 23, 2-hour 6-hour troponin pending at this time. ? UA reviewed, unremarkable however does have ketones 2+. Was likely secondary to starvation. ? Check electrolytes in AM. DNR/DNI SCDs Lovenox 40 daily Attestations 2 Medical Necessity Statement*: Greater than 2 minutes stay for management of acute right femoral neck fracture and distal radius fracture, rhabdomyolysis. Diagnoses Distal radius fracture, right S52.501A Closed subcapital fracture of neck of right femur S72.011A H/O cervical spine surgery Z98.890 Rhabdomyolysis M62.82 Hypertension I10
[2024-02-07] MEDS: sodium chloride 0.9% 1,000 ML 100 ML IV (13:55)
[2024-02-07 14:11] LABS: Troponin 5 2HR 19.63 ng/L (0-10); Troponin 5 2HR Delta -3.37 ABS# (0-10)
[2024-02-07] MEDS: enoxaparin 40 mg/0.4 mL Syringe SUBCUT (15:15)
[2024-02-07] MEDS: amlodipine 10 mg Tablet PO (15:15)
--- NOTE | 2024-02-07 16:02 | ECG_ITS ---
[facility] Test Date: 2024-02-07 Pat Name: Anyi Conrad Department: Room: 260 Gender: Female Food Porter: : 1945 Requested By: Jem Roque Order Number: [id number] Dory MD: Tim Arita M.D. Measurements Intervals [place] Rate: 112 P: 71 VA: 128 QRS: 16 QRSD: 89 T: 3 QT: 338 QTc: 462 Interpretive Statements SINUS TACHYCARDIA WITH FREQUENT VENTRICULAR PREMATURE COMPLEXES MODERATE ST DEPRESSION [0.05+ mV ST DEPRESSION] Compared to ECG 02/07/2024 13:41:17 ST (T wave) deviation now present Electronically Signed On 02-08-2024 21:50:38 CDT by Tim Arita M.D. [id number]
--- NOTE | 2024-02-07 16:59 | P.CONIM_ITS ---
Providers/Reason For Consult 2 Consulting Physician/Specialty*: Agnes Malloy MD Reason for Consult*: Right subcapital hip fracture and right distal radius fracture Requesting Physician: Dr. Jem Helton Attending Physician: Maddi Jaime MD Primary Care Provider: Richa Andujar APN History of Present Illness History of Present Illness Anyi Conrad is a 78 year old female who was in her usual state of health when she was found at the bottom of her staircase sustaining a fall down the stairs approximately 3 days prior. Her life alert was in the bathroom, and she had 2 dogs at home with her. Stairs were tiled and she tripped and fell. She states it was a purely mechanical fall. At that time, she fractured both her hip and her wrist on the right. The patient is seen in her room, and surgery was discussed with her. This will be planned for tomorrow morning. Review of Systems 2 Const: Denies: fever(s) or chills Eyes: Denies: photophobia Card: Denies: chest pain Resp: Denies: dyspnea GI: Denies: abdominal pain : Denies: dysuria, urinary frequency or urinary urgency Musc: Reports: joint pain; Denies: neck pain or back pain Skin/Breast: Denies: rash Medications/Allergies Home Medications Medication Instructions Recorded Confirmed Last Taken Type cholecalciferol (vitamin D3) 25 2,000 unit PO DAILY 12/01/19 02/07/24 10/01/23 History mcg (1,000 unit) capsule glucosamine HCl 1,500 mg tablet 1,500 mg PO DAILY 12/01/19 02/07/24 10/01/23 History nnigenje-nes-fnnhm acid 0.4 1 tab PO QAM 12/01/19 02/07/24 10/01/23 History mg-lycopene 300 mcg-lutein 250 mcg tablet (Centrum Silver) vitamin E mixed-tocotrienol 120 1 cap PO DAILY 12/01/19 02/07/24 10/01/23 History unit-17 mg capsule lisinopril 20 mg tablet 20 mg PO DAILY #90 tabs 01/28/20 02/07/24 10/01/23 Rx ondansetron HCl 4 mg tablet 4 mg PO Q8H 09/29/23 02/07/24 Unknown History pantoprazole 40 mg tablet,delayed 40 mg PO DAILY 10/01/23 02/07/24 10/01/23 History release tramadol 50 mg tablet 50 mg PO BID PRN Pain 10/01/23 02/07/24 10/01/23 History cyclobenzaprine 10 mg tablet 10 mg PO TID PRN Muscle Spasm 02/07/24 02/07/24 Unknown History Allergies Allergy/AdvReac Type Severity Reaction Status Date / Time codeine Allergy Unknown Verified 02/07/24 10:07 gabapentin AdvReac Severe ADR-Nausea Verified 02/07/24 10:07 Current Medications Generic Name Dose Route Start Last Admin Trade Name Freq PRN Reason Stop Dose Admin Amlodipine Besylate 10 mg 02/07/24 14:10 02/07/24 15:15 Amlodipine 10 Mg Tablet PO 10 mg DAILY LUNA Administration Enoxaparin Sodium 40 mg 02/07/24 14:00 02/07/24 15:15 Enoxaparin 40 Mg/0.4 Ml Syringe SUBCUT 40 mg Q24H LUNA Administration Sodium Chloride 1,000 mls @ 125 mls/hr 02/07/24 13:26 02/07/24 13:55 Sodium Chloride 0.9% IV 100 mls/hr .Q8H LUNA Administration PFSH Acute 2 PFSH: Medical History Bleeding hemorrhoids Spondylolisthesis, lumbar region Lumbar stenosis with neurogenic claudication Intervertebral disc disorder with radiculopathy of lumbosacral region Surgical History History of neck surgery 08/28/2017 C4-C5, C5-C6 ACDFF H/O repair of right rotator cuff Family History Denies family history of Anesthesia complication Bleeding disorder Cancer Social History Smoking and tobacco/nicotine status: never used tobacco/nicotine Second hand smoke exposure: No Alcohol intake: never Substance/Drug Use: never Household members: spouse Marital status: Current occupational status: retired Dietary Habits: Current diet type/program: regular Caffeine: Yes Caffeine intake frequency: coffee Exercise: What type of physical activity do you participate in?: none P hysical activity functional status: independent ambulation Vitals/I&O/Wt Last Vital Signs Temp 98.6 F 02/07/24 15:59 Pulse 116 H 02/07/24 15:59 Resp 14 02/07/24 15:59 BP 128/74 02/07/24 15:59 Pulse Ox 95 02/07/24 16:07 O2 Del Method Room Air 02/07/24 16:07 02/07/24 02/07/24 02/07/24 06:59 14:59 22:59 Intake Total 1000 / 1000 Balance 1000 / 1000 Weight last 48 hrs Weight 120 lb Physical Exam 2 Const: COMMON NORMALS: no acute distress, average body habitus, patient oriented x3 and alert GENERAL APPEARANCE: cooperative and comfortable O RIENTATION/CONSCIOUSNESS: Yes awake HENMT: COMMON NORMALS: normocephalic and atraumatic HEAD & SCALP: n ormocephalic and atraumatic Eye: GENERAL EYE: appearance normal, both eyes and all related structures Chest: COMMONS NORMALS: normal inspection of the chest Resp: COMMON NORMALS: normal respiratory effort EFFORT & INSPECTION: Yes able to speak in complete sentences and Yes symmetric chest movement Extremity: RIGHT UPPER EXTREMITY: Yes wrist (There is a splint in place on the hand) Right wrist: Yes inspection (No significant finger swelling), Yes palpation, Yes ROM (Able to wiggle fingers) and Yes neurovascular exam (Intact distal to the fracture) RIGHT LOWER EXTREMITY: Yes hip joint (Shortened and slightly externally rotated) Right hip: Yes ROM (Not evaluated due to fracture) and Yes neurovascular exam (Intact distally with no evidence of DVT) Neuro: COMMON NORMALS: patient oriented x3 SENSORIUM/ORIENTATION: Yes alert Psych: COMMON NORMALS: mental status grossly normal APPEARANCE: Yes grossly normal ATTITUDE: Yes calm and Yes engaged ATTENTION/CONCENTRATION: Yes attention grossly intact Skin: COMMON NORMALS: no rashes or lesions noted GENERAL SKIN EXAM: no rashes or lesions noted Urinary Catheter Management: Randolph: Cath Placed During This Visit: yes Urinary Catheter Date of Insertion: 02/07/24 Urinary Catheter Time of Insertion: 10:42 Data 02/07/24 11:13 02/07/24 11:13 Other Xray: My impression: Patient has a comminuted intra-articular right distal radius fracture which is significantly impacted. Additionally, she has a 100% displaced subcapital right hip fracture. A&P Assessment and plan (1) Closed subcapital fracture of neck of right femur: Patient is seen in her room and evaluated. Discussion is undertaken with her regarding appropriate treatment for her 2 fractures. She is agreeable to right hemiarthroplasty of the hip along with open reduction internal fixation of her right distal radius fracture which will facilitate her recovery from her hip. Risks and complications of both surgical procedures are discussed at length with her. She understands there is a risk of infection, dislocation, and further fracture of the femur with regards to the hemiarthroplasty of the hip. She also understands that there is a risk of infection, malunion, and nonunion with treatment of the distal radius. Consents will be signed and questions were answered today. We will plan for surgical intervention in the morning. Qualifiers: Encounter type: initial encounter Qualified Code(s): S72.011A - Unspecified intracapsular fracture of right femur, initial encounter for closed fracture (2) Distal radius fracture, right: See above Qualifiers: Encounter type: initial encounter Fracture type: closed Fracture morphology: other intra-articular Qualified Code(s): S52.571A - Other intraarticular fracture of lower end of right radius, initial encounter for closed fracture Diagnoses Closed subcapital fracture of right femur, initial encounter S72.011A Encounter type: initial encounter Other closed intra-articular fracture of distal end of right radius, initial encounter S52.571A Encounter type: initial encounter Fracture type: closed Fracture morphology: other intra-articular
[2024-02-07] MEDS: morphine 4 mg/mL SDV 1 mL IVP (17:24)
[2024-02-07 19:48] LABS: Troponin 5 6HR 22.92 ng/L (0-10)
[2024-02-07 19:49] LABS: Troponin 5 6HR Delta -0.08 ng/L (0-12)
[2024-02-07] MEDS: sodium chloride 0.9% 1,000 ML 125 ML IV (23:13)
[2024-02-08] VITALS (17 sets, daily range): BP systolic 103–159; BP diastolic 46–79; PULSE 62–95; RESP 16–18; TEMP 36.1–36.7; O2SAT 91–100
--- NOTE | 2024-02-08 | XR_ITS ---
WS: [id number] C-ARM RADIOGRAPHS RIGHT WRIST; 5 IMAGES HISTORY: [facility] COMPARISON: Radiograph 02/07/2024 Reduction and fixation of the distal radius. Normal alignment of the distal radius. Volar plate and s crews are noted. Ulnar avulsion fracture of the styloid process. IMPRESSION: Satisfactory post reduction and ORIF distal radius.
[2024-02-08] MEDS: morphine 4 mg/mL SDV 1 mL IVP (03:50)
[2024-02-08 05:42] LABS: Basophils # 0.1 10^3/uL (0.0-0.1); Basophils % 0.4 %; Eosinophils % 0.3 %; Hematocrit 37.9 % (36-47); Lymphocytes # 2.3 10^3/uL (0.8-4.8); Lymphocytes % 16.1 %; Mean Corpuscular Hemoglobin 30.9 pg (27-33); Mean Corpuscular Volume 93.6 fl (85-98); Mean Platelet Volume 10.7 fL (7.4-10.4); Monocytes # 1.6 10^3/uL (0.2-0.9); Monocytes % 11.7 %; Neutrophils # 9.92 10^3/uL (1.8-7.7); Neutrophils % 71.1 %; Nucleated Red Blood Cells % 0 %; Platelet Count 279 10^3/cmm (157-399); Red Blood Count 4.05 10^6/uL (3.85-5.65); Red Cell Distribution Width 15.4 % (12.1-15.1); White Blood Count 13.94 10^3/uL (3.29-11.43)
[2024-02-08 05:49] LABS: INR 1.04 (0.8-1.2)
[2024-02-08 06:15] LABS: Alanine Aminotransferase 27 U/L (0-33); Albumin Level 3.5 g/dL (3.5-5.2); Alkaline Phosphatase 65 U/L (35-105); Anion Gap 15.5 (5-19); Aspartate Amino Transferase 42 U/L (0-32); Blood Urea Nitrogen 17 mg/dL (8-23); Calcium 8.4 mg/dL (8.5-10.5); Carbon Dioxide 24 mmol/L (22-29); Chloride 103 mmol/L (98-107); Creatine Phosphokinase 1103 U/L (26-192); Creatinine Clr Calc Pharmacy 53.6116; Globulin 2.1 g/dL (1.3-4.6); Glucose 90 mg/dL (65-115); Magnesium 1.9 mg/dL (1.7-2.3); Osmolality Calculated 289 mOsm/kg (285-295); Potassium 3.5 mmol/L (3.5-5.1); Sodium 139 mmol/L (136-145); Total Bilirubin 0.5 mg/dL (0.15-1.2); Total Protein 5.6 g/dL (6.6-8.7)
[2024-02-08] MEDS: acetaminophen 1,000 MG/100 ML PIGGYBACK 400 MG IV ×3 (08:00→21:58)
--- NOTE | 2024-02-08 08:05 | P.ANESASSM_ITS ---
Pre-Anesthetic Assessment Height/Weight: Height 1.5 m Weight 59.557 kg Temp Pulse Resp BP Pulse Ox O2 Del Method 98.1 F 95 18 159/79 98 Room Air 02/08/24 03:37 02/08/24 07:21 02/08/24 07:21 02/08/24 07:21 02/08/24 07:21 02/08/24 07:21 Operation Date: 02/08/24 08:45 Proposed Procedures p Hemiarthroplasty Hip Bipolar(Right) - Agnes Malloy MD s ORIF Wrist ORIF Radius(Right) - Agnes Malloy MD Familial anesthetic complications: None Was Beta Rhea taken within 24 hours: N/A Was Clonidine taken within 24 hours: N/A Last intake: > 8 hrs Social No alcohol and No tobacco Exam alert, oriented x 3, clear to auscultation bilaterally and regular rate & rhythm Airway Mallampati: Class II Dentition: full CV/HEM Hypertension Anesthetic Plan ASA status: 2 Anesthesia: General and Regional (specify below) Risk of > 500 ml blood loss (7ml/kg in children): No Medications/Allergies Home Medications Medication Instructions Recorded Confirmed Last Taken Type cholecalciferol (vitamin D3) 25 2,000 unit PO DAILY 12/01/19 02/07/24 10/01/23 History mcg (1,000 unit) capsule glucosamine HCl 1,500 mg tablet 1,500 mg PO DAILY 12/01/19 02/07/24 10/01/23 History yrjysyax-iet-iefal acid 0.4 1 tab PO QAM 12/01/19 02/07/24 10/01/23 History mg-lycopene 300 mcg-lutein 250 mcg tablet (Centrum Silver) vitamin E mixed-tocotrienol 120 1 cap PO DAILY 12/01/19 02/07/24 10/01/23 History unit-17 mg capsule lisinopril 20 mg tablet 20 mg PO DAILY #90 tabs 01/28/20 02/07/24 10/01/23 Rx ondansetron HCl 4 mg tablet 4 mg PO Q8H 09/29/23 02/07/24 Unknown History pantoprazole 40 mg tablet,delayed 40 mg PO DAILY 10/01/23 02/07/24 10/01/23 History release tramadol 50 mg tablet 50 mg PO BID PRN Pain 11/07/1602/07/24 10/01/23 History cyclobenzaprine 10 mg tablet 10 mg PO TID PRN Muscle Spasm 02/07/24 02/07/24 Unknown History Allergies Allergy/AdvReac Type Severity Reaction Status Date / Time codeine Allergy Unknown Verified 02/07/24 10:07 gabapentin AdvReac Severe ADR-Nausea Verified 02/07/24 10:07 Current Medications Generic Name Dose Route Start Last Admin Trade Name Freq PRN Reason Stop Dose Admin Amlodipine Besylate 10 mg 02/07/24 14:10 02/07/24 15:15 Amlodipine 10 Mg Tablet PO 10 mg DAILY LUNA Administration Enoxaparin Sodium 40 mg 02/07/24 14:00 02/07/24 15:15 Enoxaparin 40 Mg/0.4 Ml Syringe SUBCUT 40 mg Q24H LUNA Administration Sodium Chloride 1,000 mls @ 125 mls/hr 02/07/24 13:26 02/07/24 23:13 Sodium Chloride 0.9% IV 125 mls/hr .Q8H LUNA Administration Morphine Sulfate 4 mg 02/07/24 13:26 02/08/24 03:50 Morphine 4 Mg/Ml Sdv 1 Ml IVP 4 mg Q4H PRN Administration SEVERE PAIN PFSH Anesthesia Medical History Bleeding hemorrhoids Spondylolisthesis, lumbar region Lumbar stenosis with neurogenic claudication Intervertebral disc disorder with radiculopathy of lumbosacral region Surgical History History of neck surgery 08/28/2017 C4-C5, C5-C6 ACDFF H/O repair of right rotator cuff Family History Denies family history of Anesthesia complication Bleeding disorder Cancer Social History Smoking and tobacco/nicotine status: never used tobacco/nicotine Second hand smoke exposure: No Alcohol intake: never Substance/Drug Use: never Household members: spouse Marital status: Current occupational status: retired Data Anesthesia 02/08/24 05:22 02/08/24 05:22 Short CBC 02/07/24 02/08/24 Range/Units 11:13 05:22 WBC 18.10 H 13.94 H (3.29-11.43) 10^3/uL Hgb 14.20 12.50 (11.27-16.99) g/dL Hct 43.2 37.9 (36-47) % MCV 94.3 93.6 (85-98) fl Plt Count 279 279 (157-399) 10^3/cmm Neut % (Auto) 79.5 71.1 % Neut # (Auto) 14.39 H 9.92 H (1.8-7.7) 10^3/uL BMP 02/07/24 02/08/24 11:13 05:22 Sodium 140 139 Potassium 3.7 3.5 Chloride 97 L 103 Carbon Dioxide 24 24 BUN 23 17 Creatinine 0.7 0.6 Glucose 119 H 90 Calcium 9.3 8.4 L Cardiac Enzymes 02/07/24 02/07/24 02/07/24 Range/Units 11:13 13:33 18:55 Creatine Kinase 2508 H* (26-192) U/L Troponin T Baseline 23 H (0-10) ng/L Troponin T 120 Minute 19.63 H (0-10) ng/L Delta Troponin T -3.37 L (0-10) ABS# Troponin T Hi Sens 6Hr 22.92 H (0-10) ng/L Troponin T Hi Sens 6Hr Delta -0.08 L (0-12) ng/L 02/08/24 Range/Units 05:22 Creatine Kinase 1103 H* (26-192) U/L Troponin T Baseline (0-10) ng/L Troponin T 120 Minute (0-10) ng/L Delta Troponin T (0-10) ABS# Troponin T Hi Sens 6Hr (0-10) ng/L Troponin T Hi Sens 6Hr Delta (0-12) ng/L Liver Function 02/07/24 02/08/24 Range/Units 11:13 05:22 Total Bilirubin 0.6 0.5 (0.15-1.2) mg/dL AST 61 H 42 H (0-32) U/L ALT 31 27 (0-33) U/L Alkaline Phosphatase 77 65 (35-105) U/L Albumin 4.3 3.5 (3.5-5.2) g/dL Urine 02/07/24 Range/Units 10:39 Urine Color Dark yellow (Yellow) Urine Appearance Clear (CLEAR) Urine pH 5 (5-7) Ur Specific [place] 1.020 (1.005-1.030) Urine Protein 1+ H (Negative) Urine Glucose (UA) Norm (Normal) Urine Ketones 2+ H (Negative) Urine Nitrate Negative (Negative) Urine Bilirubin Neg (Negative) Ur Leukocyte Esterase Negative (Negative) Urine RBC 0-4 H (0-2) /hpf Urine WBC 0-4 H (0-5) /hpf Coags 02/08/24 05:22 PT 14.00 INR 1.04 Cardiac Studies: 2 No Data to Display
[2024-02-08] MEDS: CELEcoxib 200 mg Capsule 400 MG PO (08:07)
[2024-02-08] MEDS: ceFAZolin 2,000 MG in sodium chloride 0.9% (plus) 50 ML 100 MG IV ×2 (08:22→15:31)
--- NOTE | 2024-02-08 09:10 | ANES.PROC ---
Anesthesia Procedures Procedure/Date: 02/08/24 Nerve Block ^: Nerve Block 1: Main Anesthesia: general anesthesia Time Out Performed: Yes Consent: requested by attending/covering physician, from patient, from other, risks and benefits reviewed and patient agrees to proceed Nerve block location: axillary (R) Anesthesia monitors applied: pulse oximetry, EKG, BP cuff and oxygen Nerve block position: supine Anesthetic Used: ropivicaine 0.5% (30 ml) and with decadron (4 mg) Nerve Stimulator Used?: No Interscalene/Femoral BLK: 2 stimuplex 22 g needle used for position and inplane approach, visualize local anesthetic spread and no vascular puncture identified Injection: neg aspiration of heme Patient Tolerated Procedure: well and no complications Complications: none
--- NOTE | 2024-02-08 09:42 | PC.OT ---
OT orders received to evaluate and treat. Pt. having surgery on 02/07. Evaluation to be completed the following day.
[2024-02-08] MEDS: thrombin 5,000 unit SDV 5000 UNIT XX (10:21)
[2024-02-08] MEDS: ceFAZolin 1,000 mg SDV 1000 MG IRRIGATION (10:30)
[2024-02-08] MEDS: vancomycin 1,000 MG SDV 1000 MG INTRA-ARTI (10:30)
--- NOTE | 2024-02-08 10:30 | PM.OP ---
Operative Report Date of procedure: February 08, 2024 Pre-op diagnosis: Right subcapital hip fracture Post-op diagnosis: Right subcapital hip fracture Post-op findings: Significantly shortened right subcapital hip fracture with consolidation of hematoma and bony fragments consistent with history of 3-day old injury Procedure done: Right bipolar hip arthroplasty Implants: The [place] total hip system with a size 5 Accolade II 127? neck angle hip stem with a size 26 mm x +0 mm femoral head and a universal head bipolar component size 42 mm outer diameter by 26 mm inner diameter Specimens removed/disposition: Femoral head, disposed of Pathology: None Surgeon: Agnes Malloy MD Director Of Exhibit Development: [facility] operating room technicians Anesthesia: General (Intubated, ASA 3) Estimated blood loss (mL): 50 IV fluids (mL): 1,000 Urine output (mL): 200 Complications: None Findings: Hip was stable at 90 degrees of flexion with 80 degrees of internal rotation and 30 degrees of adduction. Leg lengths appear to have been restored. It was also stable to toe hang and external rotation. Condition: stable Disposition: PACU (Then return to floor for postoperative rehabilitation and pain management) Brief History: Anyi Conrad is a 78 year old female who was in her usual state of health when she was found at the bottom of her staircase sustaining a fall down seven stairs approximately 3 days prior. Her life alert was in the bathroom along with her cell phone. Stairs were tiled and she tripped and fell. She states it was a purely mechanical fall. At that time, she fractured both her hip and her wrist on the right. Consents were signed and questions were answered the day prior to surgery. This op note will address the treatment of the hip fracture with separate op note to follow. Procedure: Patient was brought to the operating theater.? She was transferred to the operating room table and subsequently administered a general anesthesia, intubated, ASA 3.? Following administration of adequate anesthesia, the patient was placed in full lateral position and held in position with a pegboard.? The patient's left lower extremity was then prepped and draped in usual fashion utilizing DuraPrep.? It was draped free. Following prepping and draping, a surgical pause was performed.? At the time of surgical pause, we identified the site and side of surgery.? We also identified the patient and preoperative surgical markings. Confirmation was made of equipment availability.? Additionally, the patient's preoperative IV antibiotic, Ancef 2 g.? X-rays were also reviewed. Following the surgical pause, an incision was made centering over the patient's greater trochanter continuing proximally and distally as necessary to allow access to the hip joint.? Dissection continued through skin and soft tissues using a scalpel, and hemostasis was obtained using electrocautery. The tensor fascia jo was identified and incised longitudinally.? Sciatic nerve was identified and protected throughout the surgical procedure.? A Charnley U retractor was placed after the tensor fascia jo had been incised longitudinally, and the sciatic nerve had been identified.? The hip was internally rotated, and the piriformis muscle was identified and tagged. Piriformis muscle along with the remaining short external rotators were then incised from the posterior aspect of the hip joint.? These were retracted posteriorly.? The capsule was entered in a T-type fashion with the edges being tagged. Short external rotators were further elevated to allow the proximal femur to be brought up out of the wound. Proximal femur was marked, and proximal resection was accomplished at the level that removed any irregularities to the calcar proximally. This was accomplished without difficulty and bony fragments were removed. Following this, we measured the femoral head and did appropriate trials to determine the size of head that would be utilized. This identified that the appropriate size head was a size 42 which had a 26 mm inner diameter. The acetabulum was evaluated and was found to be without evidence of significant degenerative osteoarthritic change. Attention was directed to the proximal femur.? The proximal femur was lifted out of the wound.? A canal finder was passed after the box chisel.? The reamer was used to lateralize.? We then began broaching. We broached sequentially and had excellent fit and fill with the size 5 broach. ?Trial reduction was accomplished with a size [address] With a size 5 broach in position, a trial reduction was accomplished with a +0 mm femoral head. The +0 mm offset femoral head gave us the stability noted above, and it was noted that lengths appeared restored and appropriate. With the final construct as noted, we had the above-noted stabilities and appropriate leg length. Therefore, trial components were removed after the hip was dislocated.? The size 5 Accolade II 127? neck angle stem was impacted into position without difficulty and onto this was placed a +0 mm x 26 mm femoral head which had been assembled into the universal head bipolar component with a 42 mm outer diameter and 26 mm inner diameter as noted above.? With a +0 mm femoral head, we had the above-noted stability.? The stem was noted to seat nicely prior to placement of the femoral head.? The wound was copiously irrigated with 20 mL of Betadine and 500 mL of normal saline mixed together.? Subsequently, we suctioned this out and irrigated the wound copiously with lactated Ringer's.? At this time, with all components in appropriate position, the hip was reduced.? Following reduction of the prosthesis once again, we confirmed the stability of the hip.? Leg lengths were also felt to be satisfactory. Being satisfied with the prosthesis, attention was directed to closure.? Closure was accomplished with 0 Vicryl in the capsular tissues.? Piriformis was reattached with 0 Vicryl as well.? Tensor fascia jo was closed with 0 Vicryl in an interrupted fashion.? The subcutaneous tissues were closed with combination of 0 Vicryl and 2-0 Monocryl.? Vancomycin powder and a Gelfoam thrombin mixture was placed into the wound as well.? The skin was closed with a running 3-0 Monocryl followed by Dermabond Melisa and Tasia. The patient was placed in an abduction pillow.? Patient was transferred off the operative bed and was brought to the recovery room in a satisfactory condition. He will be discharged to the floor for postoperative rehabilitation and pain management. There were no complications and no specimens. Related Problem List Diagnoses (1) Closed subcapital fracture of neck of right femur:
--- NOTE | 2024-02-08 12:46 | XRR_ITS ---
PROCEDURE INFORMATION: Exam: XR Pelvis Exam date and time: 02/08/2024 12:47 PM Age: 78 years old Clinical indication: Device placement; Other: RT bipolar hip arthroplasty; Prior surgery; Surgery date: Post-operative (0-2 days); Surgery type: RT hip; Additional info: Status post bipolar hip arthroplasty, low ap pelvis TECHNIQUE: Imaging protocol: Radiologic exam of the pelvis. Views: 1 or 2 view. COMPARISON: CR XR hip RT 2-3V wo/w pel* [id number] 02/07/2024 10:11 AM FINDINGS: Bones/joints: Post right hip arthroplasty with expected soft tissue emphysema. Mild degenerative disease of the left hip joint. No acute fracture or dislocation. Mild degenerative disease of bilateral sacroiliac joints. Soft tissues: See Bones/joints finding. XR/XR pelvis 1-2V* [id number] IMPRESSION: Post right hip arthroplasty with anatomic alignment and no immediate complications.
--- NOTE | 2024-02-08 12:49 | PM.OP ---
Operative Report Date of procedure: February 08, 2024 Pre-op diagnosis: Right articular comminuted impacted distal radius fracture Post-op diagnosis: Right articular comminuted impacted distal radius fracture Post-op findings: Severely comminuted impacted intra-articular right distal radius fracture with bony void Procedure done: Open reduction internal fixation right distal radius fracture with DBM bone grafting Implants: The Miguel Angel 3-hole extra short narrow volar wrist plate with [place] DBM plus paste with cancellous bone chips Specimens removed/disposition: None Surgeon: Agnes Malloy MD Zoology Technical Officer: [facility] operating room technicians Anesthesia: General (Intubated) Estimated blood loss (mL): 5 Tourniquet time (min): 52 (At 250 mmHg) IV fluids (mL): 500 Urine output (mL): 50 Complications: None Findings: Severely comminuted right intra-articular distal radius fracture with bone loss and impaction Condition: stable Disposition: PACU (Then return to floor for postoperative rehabilitation and pain management) Brief History: Anyi Conrad is a 78 year old female who was in her usual state of health when she was found at the bottom of her staircase sustaining a fall down the stairs approximately 3 days prior. Her life alert was in the bathroom, and she had 2 dogs at home with her. Stairs were tiled and she tripped and fell. She states it was a purely mechanical fall. At that time, she fractured both her hip and her wrist on the right. The hemiarthroplasty for the right hip is dictated separately and was performed first. The wrist procedure was performed following the hemiarthroplasty of the right hip. Procedure: Patient was brought to the operating theater to address both her subcapital hip fracture on the right as well as her comminuted intra-articular right distal radius fracture. After discussion with the patient, election was made to proceed with right hip hemiarthroplasty and open reduction internal fixation of the right distal radius fracture. Risks and complications of both procedures were discussed with the patient. At the time the wrist was addressed, we had completed the right hip hemiarthroplasty. Anesthesia was administered in the form of general intubated, ASA 3. This was uneventful. Following repair of the femur, attention was directed to the right wrist. The wrist was prepped and draped in the usual fashion. The arm was exsanguinated, and the tourniquet was elevated to 250 mmHg for a total tourniquet time of 52 minutes. The patient was also given Ancef 2 g preoperatively prior to her open reduction internal fixation of the femur, and it was still timely for the distal radius. The arm was prepped and draped with DuraPrep in usual fashion with the arm draped free prior to draping and elevation of the tourniquet. A surgical pause was performed. At the time, the surgical pause, we confirmed the site and side of surgery. We also confirmed the patient's identity, appropriate and timely administration of preoperative antibiotics and preoperative surgical markings. Fluoroscopy was used throughout the surgical procedure. The fracture pattern was marked out on the patient's arm with a marker. Incision was then made appropriate to begin slightly distal to the distal end of the radius continuing across the fracture. Fluoroscopy was used to determine appropriate plate size, and this was an extra short narrow right [place] volar distal radius plate, 3-hole. Dissection continued through skin and soft tissues using a scalpel. Essentially, the fracture made its own plane through the soft tissues. After initial skin incision, we were able to open the soft tissues primarily with just my finger. Elevation was accomplished of soft tissues off the distal radius and radial shaft. Retractors were placed. Manipulation of the fracture using a [place] was accomplished and we were able to obtain a nearly anatomic reduction, and appropriate size plate was chosen. The plate chosen was an extra short narrow Miguel Angel volar plate. This was held in position with a freer elevator and positioning was confirmed with fluoroscopy. Once the fracture was reduced, it was evaluated with x-ray. It was found there was a significant void as suspected from the x-ray. Therefore, a 3 cc [place] DBM plus paste with cancellous bone was injected into the site of the void. The plate was pinned in position and subsequently attached with standard AO technique utilizing 1 nonlocking screw and the remainder being locking screws. Fluoroscopy was used throughout the surgical procedure, and once the plate was in appropriate position and all screw holes were filled, the wound was gently irrigated with normal saline. The fracture was noted to be stable once the plate was in position. Attention was directed to closure. The surgical incision was irrigated with normal saline containing Ancef. It was then closed with combination of 2-0 Monocryl in the subcutaneous tissues and a subcuticular closure was accomplished with 4-0 Monocryl. This was followed by Dermabond, OpSite, fluffed fluffs, sterile soft roll, and an Amos wrap. The tourniquet was released after 52 minutes. There were no complications. There were no specimens. The procedure was well tolerated. Related Problem List Diagnoses (1) Distal radius fracture, right:
--- NOTE | 2024-02-08 12:55 | ANE.PACU2 ---
Inpatient post-anesthesia follow up: Airway intact: Yes Vital signs: Temperature 98 F Pulse Rate 72 Respiratory Rate 18 Blood Pressure 136/69 Pulse Oximetry 95 Oxygen Delivery Me thod Nasal Cannula Oxygen Flow Rate 8 Fraction of Inspir ed Oxygen Hydration adequate: Yes Nausea and vomiting: No Pain level: 1 Mental status: Baseline
[2024-02-08] MEDS: chlorhexidine gluconate 0.12% Btl 473 mL 30 ML MUCOUS MEM ×2 (13:43→21:58)
[2024-02-08] MEDS: enoxaparin 40 mg/0.4 mL Syringe SUBCUT (13:44)
[2024-02-08] MEDS: CELEcoxib 200 mg Capsule PO (13:44)
--- NOTE | 2024-02-08 13:53 | P.PN_ITS ---
Subjective 2 Subjective: Seen postop. Surgery uneventful. Patient lying in bed appearing comfortable at this time. Vitals/I&O/Wt Last Vital Signs Temp 97.2 F L 02/08/24 13:05 Pulse 63 02/08/24 13:05 Resp 18 02/08/24 13:05 BP 125/71 02/08/24 13:05 Pulse Ox 94 02/08/24 13:05 O2 Del Method Room Air 02/08/24 13:05 O2 Flow Rate 8 02/08/24 12:36 02/07/24 02/08/24 02/08/24 22:59 06:59 14:59 Intake Total 840 / 1840 400 / 2240 1650 / 1650 Output Total 600 / 600 250 / 850 555 / 555 Balance 240 / 1240 150 / 1390 1095 / 1095 Weight last 48 hrs Weight 59.557 kg Weight 54.431 kg Physical Exam 2 Narrative: General: Alert oriented x3, patient seen laying in bed appearing comfortable at this time HEENT: Normocephalic, atraumatic, EOMI, breathing room air. Cardio: Regular rate rhythm, normal S1-S2 Respiratory: Good bilateral air entry, no wheezes no rhonchi appreciated GI: Abdomen soft, nontender, nondistended, bowel sounds + Extremities: Right hip surgical Band-Aid present. Urinary Catheter Management: Randolph: Cath Placed During This Visit: yes Reason for Continuing Indwelling Catheter: Perioperative Use in Selected Surgeries Urinary Catheter Date of Insertion: 02/07/24 Urinary Catheter Time of Insertion: 10:42 Data 02/08/24 05:22 02/08/24 05:22 A&P Assessment and plan (1) Distal radius fracture, right: Qualifiers: Encounter type: initial encounter Fracture morphology: other intra- articular Fracture type: closed Qualified Code(s): S52.571A - Other intraarticular fracture of lower end of right radius, initial encounter for closed fracture (2) Closed subcapital fracture of neck of right femur: Qualifiers: Encounter type: initial encounter Qualified Code(s): S72.011A - Unspecified intracapsular fracture of right femur, initial encounter for closed fracture (3) H/O cervical spine surgery: (4) Rhabdomyolysis: (5) Hypertension: Plan #Acute right femoral neck fracture, displaced?status post surgery postop day 0 #Distal radius fracture right side #Hypertension #GERD #Mild rhabdomyolysis from immobilization ? Consult orthopedic surgery. Surgery in a.m. ? Check PT/INR?reviewed ? Check preop labs and images. Chest x-ray, CBC CMP magnesium?reviewed ? Check EKG?sinus rhythm with frequent PVCs. ? Denies any other complaints at this time. ? Ultrasound bilateral lower extremities ruled out DVT?DVT negative ? CPK 2500. Continue IV fluids normal saline 100 cc/h ? DNR/DNI ? Clear liquid diet. ? I will hold lisinopril at this time as patient going for surgery in a.m. ? Continue amlodipine 10 daily today. ? Oxycodone IR 5-10 every 4 hours as needed ? Check CBC in a.m. for postop blood loss. ? Zofran for nausea ? PT OT after surgery ? Troponins negative. ? UA reviewed, unremarkable however does have ketones 2+. Was likely secondary to starvation. ? Check electrolytes in AM. ? Continue IV fluids. Check CPK in AM. DNR/DNI SCDs Lovenox 40 daily Attestations 2 Medical Necessity Statement*: Greater than 2 minutes stay for management of acute right femoral neck fracture and distal radius fracture, rhabdomyolysis. Diagnoses Other closed intra-articular fracture of distal end of right radius, initial encounter S52.571A Encounter type: initial encounter Fracture morphology: other intra-articular Fracture type: closed Closed subcapital fracture of right femur, initial encounter S72.011A Encounter type: initial encounter H/O cervical spine surgery Z98.890 Rhabdomyolysis M62.82 Hypertension I10
[2024-02-08] MEDS: sodium chloride 0.9% 1,000 ML 125 ML IV ×2 (14:49→23:56)
[2024-02-08] MEDS: ondansetron 2 mg/ML SDV 2 mL 4 MG IVP (17:19)
[2024-02-08] MEDS: calcium carbonate 500 mg Chew Tablet 1000 MG PO (17:50)
[2024-02-08] MEDS: oxyCODONE 5 mg IR Tab/Cap PO (17:50)
[2024-02-08] MEDS: iron polysaccharide complex 150 mg Capsule PO (17:50)
[2024-02-08] MEDS: sennosides-docusate Tablet 2 TAB PO (17:51)
[2024-02-08] MEDS: mupirocin oint 22 gm 1 APPLIC NASAL (17:51)
[2024-02-09] VITALS (9 sets, daily range): BP systolic 115–136; BP diastolic 66–70; PULSE 72–101; RESP 16–20; TEMP 36.3–37; O2SAT 95–98
[2024-02-09] MEDS: ceFAZolin 2,000 MG in sodium chloride 0.9% (plus) 50 ML 100 MG IV ×2 (00:32→08:15)
[2024-02-09] MEDS: CELEcoxib 200 mg Capsule PO ×2 (00:32→13:40)
[2024-02-09] MEDS: oxyCODONE 5 mg IR Tab/Cap PO ×3 (00:33→22:44)
[2024-02-09 03:49] LABS: Basophils % 0.1 %; Lymphocytes % 10.6 %; Mean Corpuscular HGB Conc 33.1 g/dL (30-55); Mean Corpuscular Hemoglobin 31.4 pg (27-33); Mean Corpuscular Volume 94.8 fl (85-98); Mean Platelet Volume 10.4 fL (7.4-10.4); Monocytes # 1.2 10^3/uL (0.2-0.9); Neutrophils # 7.09 10^3/uL (1.8-7.7); Nucleated Red Blood Cells % 0 %; Platelet Count 226 10^3/cmm (157-399); Red Blood Count 3.06 10^6/uL (3.85-5.65); Red Cell Distribution Width 15.3 % (12.1-15.1); White Blood Count 9.33 10^3/uL (3.29-11.43)
[2024-02-09 04:18] LABS: Anion Gap 10.5 (5-19); Blood Urea Nitrogen 15 mg/dL (8-23); Carbon Dioxide 24 mmol/L (22-29); Chloride 103 mmol/L (98-107); Creatinine Clr Calc Pharmacy 53.6116; Glucose 121 mg/dL (65-115); Osmolality Calculated 280 mOsm/kg (285-295); Potassium 3.5 mmol/L (3.5-5.1); Sodium 134 mmol/L (136-145)
[2024-02-09] MEDS: sodium chloride 0.9% 1,000 ML 125 ML IV (05:59)
[2024-02-09] MEDS: acetaminophen 1,000 MG/100 ML PIGGYBACK 400 MG IV (06:00)
[2024-02-09] MEDS: sennosides-docusate Tablet 2 TAB PO ×2 (08:13→16:52)
[2024-02-09] MEDS: amlodipine 10 mg Tablet PO (08:14)
[2024-02-09] MEDS: calcium carbonate 500 mg Chew Tablet 1000 MG PO ×2 (08:14→16:52)
[2024-02-09] MEDS: iron polysaccharide complex 150 mg Capsule PO ×2 (08:14→16:52)
[2024-02-09] MEDS: cholecalciferol (vitamin D3) 1,000 unit Tablet 2000 UNIT PO (08:14)
[2024-02-09] MEDS: multivitamin therapeutic Tablet 1 TAB PO (08:14)
[2024-02-09] MEDS: pantoprazole DR 40 mg Tablet PO (08:14)
[2024-02-09] MEDS: chlorhexidine gluconate 0.12% Btl 473 mL 30 ML MUCOUS MEM ×4 (08:15→22:06)
--- NOTE | 2024-02-09 09:57 | PC.CHAP ---
Pastoral Care Encounter/Spiritual Assessment Type of Contact [] Declined foreign exchange clerk visit [] Patient/Family/Request visit [] Outpatient visit [] Follow-up visit [] Physician referral [] Code/Alert [x] Routine visit [] Staff referral [] Actively dying [] Patient sleeping [] Family support [] [] Out of room [] Palliative care [] [x] Receiving care in room [] Pre-surgical visit [] Trauma [] Long length of stay [] ICU visit [] Other: Relational/Emotional Strength [] Patient feels connected with others/family/visitors/staff [] Distress [] Loneliness/isolation [] Abandonment Spirituality of Patient [] Person of Anette [] Attends Hinduism of their Anette [] Believes in Prayer [] Reads Bible or Caodaism materials [] There are Spiritual issues to be addressed Ammonium Nitrate Neutralizer Interventions [x] Prayer [] Active listening [] Non-anxious presence [] Spiritual/emotional support [] Crisis/trauma care [] Spiritual counseling [] Bereavement support [] Provided bereavement packet [] Provided Bible/devotional materials [] Provided toy/stuffed animal, coloring book to patient or family member [] Provided Communion [] Anointing/Halfway [] Salvation [] Completed spiritual assessment [] Other: Impact on Illness or Injury [] Angry [] Fearful [] Anxious [] Often cries [] Exhaustion [] Unable to work [] Unable to attend yazidi [] Unable to walk/stand [] Unable to read [] Unable to drive [] Unable to eat/drink [] Unable to sleep [] Unable to be with family [] Patient intubated [] Other: Summary Time spent with patient
--- NOTE | 2024-02-09 12:30 | P.PN_ITS ---
Subjective 2 Subjective: Complains of nausea and attempting to get out of bed and participate with therapy. She was able to move to the bedside commode. States that she still feels very weak. Medications: Reviewed: Yes Vitals/I&O/Wt Last Vital Signs Temp 98.5 F 02/09/24 12:00 Pulse 101 H 02/09/24 12:00 Resp 18 02/09/24 12:00 BP 127/66 02/09/24 12:00 Pulse Ox 95 02/09/24 12:00 O2 Del Method Room Air 02/09/24 12:00 O2 Flow Rate 8 02/08/24 12:36 02/08/24 02/09/24 02/09/24 22:59 06:59 14:59 Intake Total 1290 / 3040 1486.25 / 4526.25 530 / 530 Output Total 450 / 1005 700 / 1705 Balance 840 / 2035 786.25 / 2821.25 530 / 530 Weight last 48 hrs Weight 69.967 kg Weight 59.557 kg Physical Exam 2 Narrative: General: No acute distress, AO x3 HEENT: PERRLA, pupils bilaterally equal and reactive, pallors not present Chest: Normal vesicular breath sounds, no added sounds, equal good air entry bilaterally CVS: S1-S2 regular, no murmurs, no tachycardia, no gallops, no rubs Abdomen: Soft, nontender, no organomegaly, bowel sounds present Neuro: No focal deficits, no facial deformity, AO x3, power 5/5 in all limbs Urinary Catheter Management: Randolph: Cath Placed During This Visit: yes, but has since been removed by the nurse Reason for Continuing Indwelling Catheter: Decision to DC Catheter Urinary Catheter Date of Insertion: 02/07/24 Urinary Catheter Time of Insertion: 10:42 Date Urinary Catheter Removed: 02/09/24 Time Urinary Catheter Discontinued: 06:00 Data 02/09/24 03:30 02/09/24 03:30 A&P Assessment and plan (1) Distal radius fracture, right: Qualifiers: Encounter type: initial encounter Fracture morphology: other intra- articular Fracture type: closed Qualified Code(s): S52.571A - Other intraarticular fracture of lower end of right radius, initial encounter for closed fracture (2) Closed subcapital fracture of neck of right femur: Qualifiers: Encounter type: initial encounter Qualified Code(s): S72.011A - Unspecified intracapsular fracture of right femur, initial encounter for closed fracture (3) H/O cervical spine surgery: (4) Rhabdomyolysis: (5) Hypertension: Plan #Acute right femoral neck fracture, displaced?status post surgery postop day 0 #Distal radius fracture right side #Hypertension #GERD #Mild rhabdomyolysis from immobilization ? Consult orthopedic surgery. Surgery in a.m. ? Check PT/INR?reviewed ? Check preop labs and images. Chest x-ray, CBC CMP magnesium?reviewed ? Check EKG?sinus rhythm with frequent PVCs. ? Denies any other complaints at this time. ? Ultrasound bilateral lower extremities ruled out DVT?DVT negative ? CPK 2500. Continue IV fluids normal saline 100 cc/h ? DNR/DNI ? Clear liquid diet. ? I will hold lisinopril at this time as patient going for surgery in a.m. ? Continue amlodipine 10 daily today. ? Oxycodone IR 5-10 every 4 hours as needed ? Check CBC in a.m. for postop blood loss. ? Zofran for nausea ? PT OT after surgery ? Troponins negative. ? UA reviewed, unremarkable however does have ketones 2+. Was likely secondary to starvation. ? Check electrolytes in AM. ? Continue IV fluids. Check CPK in AM. DNR/DNI SCDs Lovenox 40 daily Plan for today February 09, 2024. Patient complaining of nausea and dizziness on attempting to get out of bed this morning. Check orthostatic vital signs. Discontinue amlodipine. Trending towards tachycardia with heart rate mostly between 90-1 10 today. Start metoprolol 12.5 mg p.o. twice daily and assess for response. Eventually goal would be to put patient back on her usual dose of lisinopril. Hemoglobin stable. Rhabdomyolysis potentially contributing. Continue PT OT, ongoing disposition planning. Patient lives by herself, high fall risk, had been on the floor for about 3 days before being brought in. Would likely benefit from ongoing skilled therapy prior to transitioning back to home. Attestations 2 Medical Necessity Statement*: Continued admission for ongoing therapy. Appropriate disposition planning Coding Level of Care Code Acute Code for Chg Fwd Diagnoses Other closed intra-articular fracture of distal end of right radius, initial encounter S52.571A Encounter type: initial encounter Fracture morphology: other intra-articular Fracture type: closed Closed subcapital fracture of right femur, initial encounter S72.011A Encounter type: initial encounter H/O cervical spine surgery Z98.890 Rhabdomyolysis M62.82 Hypertension I10
[2024-02-09] MEDS: enoxaparin 40 mg/0.4 mL Syringe SUBCUT (13:39)
[2024-02-09] MEDS: acetaminophen 500 mg Tablet 1000 MG PO ×2 (13:39→22:05)
[2024-02-09] MEDS: mupirocin oint 22 gm 1 APPLIC NASAL (16:52)
--- NOTE | 2024-02-09 19:15 | P.PN_ITS ---
Subjective 2 Subjective: Patient is doing well following right bipolar hip arthroplasty and open reduction internal fixation of right wrist. Medications: Reviewed: Yes Vitals/I&O/Wt Last Vital Signs Temp 97.4 F L 02/09/24 16:00 Pulse 92 02/09/24 16:00 Resp 16 02/09/24 16:00 BP 115/70 02/09/24 16:00 Pulse Ox 96 02/09/24 16:00 O2 Del Method Room Air 02/09/24 16:00 O2 Flow Rate 8 02/08/24 12:36 02/09/24 02/09/24 02/09/24 06:59 14:59 22:59 Intake Total 1486.25 / 4526.25 2009 240 / 2250 Output Total 700 / 1705 250 / 250 Balance 786.25 / 2821.25 1760 / 1760 240 / 2000 Weight last 48 hrs Weight 154 lb 4 oz Weight 131 lb 4.8 oz Physical Exam 2 Const: COMMON NORMALS: no acute distress, average body habitus, patient oriented x3 and alert GENERAL APPEARANCE: cooperative and comfortable O RIENTATION/CONSCIOUSNESS: Yes awake HENMT: COMMON NORMALS: normocephalic and atraumatic HEAD & SCALP: n ormocephalic and atraumatic Eye: GENERAL EYE: appearance normal, both eyes and all related structures Chest: COMMONS NORMALS: normal inspection of the chest Resp: COMMON NORMALS: normal respiratory effort EFFORT & INSPECTION: Yes able to speak in complete sentences and Yes symmetric chest movement Extremity: RIGHT UPPER EXTREMITY: Yes wrist (Outer dressing is removed, cock- up splint ordered) Right wrist: Yes inspection (Dressing dry and intact) and Yes neurovascular exam (Intact distally) RIGHT LOWER EXTREMITY: Yes hip joint (Dressing is dry and intact) Right hip: Yes palpation (Minimal discomfort) and Yes neurovascular exam (No evidence of DVT) Neuro: COMMON NORMALS: patient oriented x3 SENSORIUM/ORIENTATION: Yes alert Psych: COMMON NORMALS: mental status grossly normal APPEARANCE: Yes grossly normal ATTITUDE: Yes calm and Yes engaged ATTENTION/CONCENTRATION: Yes attention grossly intact Skin: COMMON NORMALS: no rashes or lesions noted GENERAL SKIN EXAM: no rashes or lesions noted Urinary Catheter Management: Randolph: Cath Placed During This Visit: yes, but has since been removed by the nurse Reason for Continuing Indwelling Catheter: Perioperative Use in Selected Surgeries Urinary Catheter Date of Insertion: 02/07/24 Urinary Catheter Time of Insertion: 10:42 Date Urinary Catheter Removed: 02/09/24 Time Urinary Catheter Discontinued: 06:00 Data 02/10/24 05:11 02/09/24 03:30 A&P Assessment and plan (1) Closed subcapital fracture of neck of right femur: Patient underwent successful hemiarthroplasty of the right hip and open reduction internal fixation of distal radius fracture. She is doing well following this and working with physical therapy. Plans are being made for discharge to half-way given the fractures both in the upper and lower extremities. She will follow-up with me in the office. In the meantime, she is weightbearing to tolerance on the right lower extremity. Posterior hip precautions are in place. She is not to be weightbearing on the right upper extremity through the wrist, but may weight-bear through the shoulder and elbow. Qualifiers: Encounter type: initial encounter Qualified Code(s): S72.011A - Unspecified intracapsular fracture of right femur, initial encounter for closed fracture (2) Distal radius fracture, right: See above Qualifiers: Encounter type: initial encounter Fracture morphology: other intra- articular Fracture type: closed Qualified Code(s): S52.571A - Other intraarticular fracture of lower end of right radius, initial encounter for closed fracture Attestations 2 Medical Necessity Statement*: Ongoing care following right wrist and right hip fracture Coding Level of Care Code Acute Code for Chg Fwd Diagnoses Closed subcapital fracture of right femur, initial encounter S72.011A Encounter type: initial encounter Other closed intra-articular fracture of distal end of right radius, initial encounter S52.571A Encounter type: initial encounter Fracture morphology: other intra-articular Fracture type: closed
[2024-02-09] MEDS: metoprolol tartrate 25 mg Tablet 12.5 MG PO (22:05)
[2024-02-10] VITALS (7 sets, daily range): BP systolic 112–157; BP diastolic 63–83; PULSE 76–88; RESP 16–17; TEMP 36.5–37; O2SAT 91–95; BMI 29.5
[2024-02-10] MEDS: CELEcoxib 200 mg Capsule PO ×2 (02:24→12:07)
[2024-02-10 05:53] LABS: Basophils % 0.4 %; Eosinophils # 0.1 10^3/uL (0.0-0.8); Hematocrit 28.7 % (36-47); Lymphocytes # 2.4 10^3/uL (0.8-4.8); Lymphocytes % 30.5 %; Mean Corpuscular HGB Conc 33.1 g/dL (30-55); Mean Corpuscular Hemoglobin 30.9 pg (27-33); Mean Corpuscular Volume 93.5 fl (85-98); Monocytes # 0.9 10^3/uL (0.2-0.9); Neutrophils # 4.37 10^3/uL (1.8-7.7); Neutrophils % 56.8 %; Nucleated Red Blood Cells % 0 %; Platelet Count 251 10^3/cmm (157-399); Red Blood Count 3.07 10^6/uL (3.85-5.65); Red Cell Distribution Width 15.2 % (12.1-15.1)
--- NOTE | 2024-02-10 07:33 | PC.SOCIAL ---
Late Entry: IMM Update 02/09/24 @ 0930: IMM Updated and reviewed w/ patient. Copy provided and copy dated, initialed and placed in chart.
[2024-02-10] MEDS: calcium carbonate 500 mg Chew Tablet 1000 MG PO (07:51)
[2024-02-10] MEDS: iron polysaccharide complex 150 mg Capsule PO (07:51)
[2024-02-10] MEDS: cholecalciferol (vitamin D3) 1,000 unit Tablet 2000 UNIT PO (07:51)
[2024-02-10] MEDS: multivitamin therapeutic Tablet 1 TAB PO (07:52)
[2024-02-10] MEDS: sennosides-docusate Tablet 2 TAB PO (07:52)
[2024-02-10] MEDS: chlorhexidine gluconate 0.12% Btl 473 mL 30 ML MUCOUS MEM ×2 (07:52→12:08)
[2024-02-10] MEDS: pantoprazole DR 40 mg Tablet PO (07:52)
[2024-02-10] MEDS: mupirocin oint 22 gm 1 APPLIC NASAL (07:52)
[2024-02-10] MEDS: oxyCODONE 5 mg IR Tab/Cap PO (07:52)
[2024-02-10] MEDS: metoprolol tartrate 25 mg Tablet 12.5 MG PO (07:53)
[2024-02-10 09:47] LABS: SARS Covid-2 Antigen negative (Negative)
[2024-02-10] MEDS: lanolin oint 7 gm 1 APPLIC TOPICAL (12:07)
[2024-02-10] MEDS: acetaminophen 500 mg Tablet 1000 MG PO (12:07)
[2024-02-10] MEDS: enoxaparin 40 mg/0.4 mL Syringe SUBCUT (13:04)
--- NOTE | 2024-02-10 13:43 | PM.DCS ---
Discharge Providers Date of Admission: 02/07/24 10:21 Date of Discharge: February 10, 2024 Attending Provider at Admission: Maddi Jaime MD Attending Provider at Discharge: Monique Onofre MD Primary Care Provider: Richa Andujar APN Diagnoses at Discharge Discharge Diagnosis (1) Closed subcapital fracture of neck of right femur: Status: Acute Qualifiers: Encounter type: initial encounter Qualified Code(s): S72.011A - Unspecified intracapsular fracture of right femur, initial encounter for closed fracture (2) Distal radius fracture, right: Status: Acute Qualifiers: Encounter type: initial encounter Fracture morphology: other intra-articular Fracture type: closed Qualified Code(s): S52.571A - Other intraarticular fracture of lower end of right radius, initial encounter for closed fracture Reason for Visit Reason for Visit: RIGHT FEMUR PAIN S/P FALL Hospital Course Hospital Course Anyi Conrad is a 78 year old female with past medical history of hypertension presented to the hospital after being found on the bottom of her staircase due to sustaining a fall 3 days ago. She could not reach her life alert on her phone and was discovered when a friend came to check on her. She was found to have a right subcapital hip fracture and distal radius fracture. Intraoperatively she was found to have consolidation of hematoma and bony fragments. She underwent right bipolar hip arthroplasty and an open reduction internal fixation of right distal radius fracture with DBM bone grafting on February 08, [address] Delgado. Patient tolerated the procedure. She is participating with physical therapy after her surgery. Hospital course also notable for discovery of rhabdomyolysis, likely from being on the floor. This is improving by the time of discharge. Patient has been reporting intermittent nausea during the course of admission, suspect this is likely related to opiates, added as needed ondansetron at discharge for symptomatic relief. She has normal bowel movements. No abdominal pain or other concerning abdominal symptoms. She remained afebrile and hemodynamically stable. Patient has been transition to SNF as she is likely to benefit from ongoing therapy. Physical Exam Narrative: General: No acute distress, AO x3 HEENT: PERRLA, pupils bilaterally equal and reactive, pallors not present Chest: Normal vesicular breath sounds, no added sounds, equal good air entry bilaterally CVS: S1-S2 regular, no murmurs, no tachycardia, no gallops, no rubs Abdomen: Soft, nontender, no organomegaly, bowel sounds present Neuro: No focal deficits, no facial deformity, AO x3, power 5/5 in all limbs Urinary Catheter Management: Randolph: Cath Placed During This Visit: yes, but has since been removed by the nurse Reason for Continuing Indwelling Catheter: Perioperative Use in Selected Surgeries Urinary Catheter Date of Insertion: 02/07/24 Urinary Catheter Time of Insertion: 10:42 Date Urinary Catheter Removed: 02/09/24 Time Urinary Catheter Discontinued: 06:00 Discharge Data Studies Completed and Pending Completed Studies During Hospitalization Category Date Time Status CT cervical spin wo con* [id number] Stat Cat Scan 02/07/24 10:[address] head wo con* [id number] Stat Cat Scan 02/07/24 10:[address] hip RT wo con* [id number] Stat Cat Scan 02/07/24 10:25 Completed XR chest 1V portable [id number] Stat Exams 02/07/24 10:11 Completed XR femur RT min 2V* [id number] Stat Exams 02/07/24 10:01 Completed XR hand RT min 3V* [id number] Stat Exams 02/07/24 11:33 Completed XR hip RT 2-3V wo/w pel* [id number] Stat Exams 02/07/24 10:01 Completed XR knee LT 3V* [id number] Stat Exams 02/07/24 10:11 Completed XR pelvis 1-2V* [id number] Routine Exams 02/08/24 12:46 Completed XR wrist RT min 3V* [id number] Routine Exams 02/08/24 00:00 Completed XR wrist RT min 3V* [id number] Stat Exams 02/07/24 11:33 Completed US venous duplex lower extremity bilat [CV venous Ultrasound 02/07/24 10:25 [place] [id number]] Stat Pending at discharge Category Date Time Status Complete Blood Count w/Auto AM LABS Lab 02/11/24 04:00 Ordered Radiology Impressions Femur X-Ray 02/07/24 10:01 IMPRESSION: 1. Right femoral neck fracture, as described above. 2. Additional findings, as above. Hip/Pelvis X-Ray 02/07/24 10:01 IMPRESSION: 1. Right femoral neck fracture, as described above. 2. Additional findings, as above. Chest X-Ray 02/07/24 10:11 IMPRESSION: No acute radiographic findings. Knee X-Ray 02/07/24 10:11 IMPRESSION: No acute radiographic findings. Venous Duplex 02/07/24 10:25 IMPRESSION: No sonographic evidence of deep vein thrombosis. Hand X-Ray 02/07/24 11:33 IMPRESSION: 1. Distal radius fracture, as described above. 2. Additional findings, as above. Pelvis X-Ray 02/08/24 12:46 IMPRESSION: Post right hip arthroplasty with anatomic alignment and no immediate complications. Laboratory Results WBC 7.70 10^3/uL (3.29-11.43) 02/10/24 05:11 RBC 3.07 10^6/uL (3.85-5.65) L 02/10/24 05:11 Hgb 9.50 g/dL (11.27-16.99) L 02/10/24 05:11 Hct 28.7 % (36-47) L 02/10/24 05:11 MCV 93.5 fl (85-98) 02/10/24 05:11 MCH 30.9 pg (27-33) 02/10/24 05:11 MCHC 33.1 g/dL (30-55) 02/10/24 05:11 RDW 15.2 % (12.1-15.1) H 02/10/24 05:11 Plt Count 251 10^3/cmm (157-399) 02/10/24 05:11 MPV 11.0 fL (7.4-10.4) H 02/10/24 05:11 Neut % (Auto) 56.8 % 02/10/24 05:11 Lymph % (Auto) 30.5 % 02/10/24 05:11 [place] % (Auto) 11.0 % 02/10/24 05:11 Eos % (Auto) 1.0 % 02/10/24 05:11 Baso % (Auto) 0.4 % 02/10/24 05:11 Neut # (Auto) 4.37 10^3/uL (1.8-7.7) 02/10/24 05:11 Lymph # (Auto) 2.4 10^3/uL (0.8-4.8) 02/10/24 05:11 [place] # (Auto) 0.9 10^3/uL (0.2-0.9) 02/10/24 05:11 Eos # (Auto) 0.1 10^3/uL (0.0-0.8) 02/10/24 05:11 Baso # (Auto) 0.0 10^3/uL (0.0-0.1) 02/10/24 05:11 Nucleated RBC % (auto) 0 % 02/10/24 05:11 Nucleated RBCs # 0.0 /100WBC 02/10/24 05:11 PT 14.00 SECONDS (12.1-14.9) 02/08/24 05:22 INR 1.04 (0.8-1.2) 02/08/24 05:22 Sodium 134 mmol/L (136-145) L 02/09/24 03:30 Potassium 3.5 mmol/L (3.5-5.1) 02/09/24 03:30 Chloride 103 mmol/L (98-107) 02/09/24 03:30 Carbon Dioxide 24 mmol/L (22-29) 02/09/24 03:30 Anion Gap 10.5 (5-19) 02/09/24 03:30 BUN 15 mg/dL (8-23) 02/09/24 03:30 Creatinine 0.6 mg/dL (0.5-0.9) 02/09/24 03:30 GFR Calculation Not Reportable 02/09/24 03:30 Glucose 121 mg/dL (65-115) H 02/09/24 03:30 Calculated Osmolality 280 mOsm/kg (285-295) L 02/09/24 03:30 Calcium 8.0 mg/dL (8.5-10.5) L 02/09/24 03:30 Magnesium 1.9 mg/dL (1.7-2.3) 02/08/24 05:22 Total Bilirubin 0.5 mg/dL (0.15-1.2) 02/08/24 05:22 AST 42 U/L (0-32) H 02/08/24 05:22 ALT 27 U/L (0-33) 02/08/24 05:22 Alkaline Phosphatase 65 U/L (35-105) 02/08/24 05:22 Creatine Kinase 1103 U/L (26-192) H* 02/08/24 05:22 Troponin T Baseline 23 ng/L (0-10) H 02/07/24 11:13 Troponin T 120 Minute 19.63 ng/L (0-10) H 02/07/24 13:33 Delta Troponin T -3.37 ABS# (0-10) L 02/07/24 13:33 Troponin T Hi Sens 6Hr 22.92 ng/L (0-10) H 02/07/24 18:55 Troponin T Hi Sens 6Hr Delta -0.08 ng/L (0-12) L 02/07/24 18:55 Total Protein 5.6 g/dL (6.6-8.7) L 02/08/24 05:22 Albumin 3.5 g/dL (3.5-5.2) 02/08/24 05:22 Globulin 2.1 g/dL (1.3-4.6) 02/08/24 05:22 Urine Color Dark yellow (Yellow) 02/07/24 10:39 Urine Appearance Clear (CLEAR) 02/07/24 10:39 Urine pH 5 (5-7) 02/07/24 10:39 Ur Specific [place] 1.020 (1.005-1.030) 02/07/24 10:39 Urine Protein 1+ (Negative) H 02/07/24 10:39 Urine Glucose (UA) Norm (Normal) 02/07/24 10:39 Urine Ketones 2+ (Negative) H 02/07/24 10:39 Urine Blood Trace (Negative) H 02/07/24 10:39 Urine Nitrate Negative (Negative) 02/07/24 10:39 Urine Bilirubin Neg (Negative) 02/07/24 10:39 Urine Urobilinogen Norm mg/dL (Negative) 02/07/24 10:39 Ur Leukocyte Esterase Negative (Negative) 02/07/24 10:39 Urine RBC 0-4 /hpf (0-2) H 02/07/24 10:39 Urine WBC 0-4 /hpf (0-5) H 02/07/24 10:39 Ur Squamous Epith Cells Rare /hpf (0-5) 02/07/24 10:39 Amorphous Sediment Not Reportable 02/07/24 10:39 Urine Bacteria Trace /hpf (NONE) 02/07/24 10:39 SARS-CoV-2 Ag (Rapid) negative (Negative) 02/10/24 09:05 Vitals Last Vital Signs Temp 97.8 F 02/10/24 13:34 Pulse 83 02/10/24 13:34 Resp 17 02/10/24 13:34 BP 127/80 02/10/24 13:34 Pulse Ox 94 02/10/24 13:34 O2 Del Method Room Air 02/10/24 04:00 O2 Flow Rate 8 02/08/24 12:36 Discharge Plan Discharge Patient Disposition: Xfer SNF Condition: Stable Prescriptions: New oxycodone 5 mg Tablet 5 - 10 mg PO Q4H PRN (Reason: Moderate Pain) 7 Days Qty: 30 0RF Ferrex 150 150 mg iron Capsule 150 mg PO BIDWM 30 Days Qty: 30 0RF Thera 400 mcg Tablet 1 tab PO DAILY 30 Days Qty: 30 0RF Stool Softener-Laxative 8.6-50 mg Tablet 2 tab PO BID 15 Days Qty: 60 0RF ondansetron 4 mg tablet,disintegrating 4 mg PO Q8H PRN (Reason: nausea and vomiting) 4 Days Qty: 10 0RF aspirin 325 mg tablet 325 mg PO DAILY Qty: 30 0RF Continued Centrum Silver 0.4-300-250 mg-mcg-mcg tablet 1 tab PO QAM glucosamine HCl 1,500 mg tablet 1,500 mg PO DAILY vitamin E mixed-tocotrienol 120-17 unit-mg capsule 1 cap PO DAILY cholecalciferol (vitamin D3) 1,000 unit capsule 2,000 unit PO DAILY ondansetron HCl 4 mg tablet 4 mg PO Q8H lisinopril 20 mg tablet 20 mg PO DAILY Qty: 90 0RF tramadol 50 mg tablet 50 mg PO BID PRN (Reason: Pain) pantoprazole 40 mg tablet,delayed release (DR/EC) 40 mg PO DAILY cyclobenzaprine 10 mg tablet 10 mg PO TID PRN (Reason: Muscle Spasm) Discharge Orders: Discharge Order (Routine); Ordered 02/10/24 Ordered By: Monique Onofre Referrals: [facility] [Outside] Richa Andujar APN [Primary Care Provider] - 02/16/24 11:20 am Agnes Malloy MD [Physician] - 02/23/24 1:00 pm Discharge Activity: Limit activity as instructed, Use walker/crutches as instructed and As per PT/OT instructions Patient Instructions: Iron Supplements (By mouth), Aspirin (By mouth), Laxative, Stool Softeners (By mouth), Oxycodone, Rapid Release (By mouth), Ondansetron (By mouth), Opioid Safety Activity Restrictions/Additional Instructions: Weightbearing as tolerated to right lower extremity. No weightbearing through right wrist. May weight-bear using a walker with a platform through elbow and shoulder. Posterior hip precautions. Gait training, ambulation, and strengthening per physical therapy. Discharge Attestations Time Spent in Discharge Care*: greater than 30 min Quality Metrics Clinical Quality Measures [ No reported AMI, CVA or VTE this stay] Coding Level of Care Code Acute Code for Chg Fwd Diagnoses Closed subcapital fracture of right femur, initial encounter S72.011A Encounter type: initial encounter Other closed intra-articular fracture of distal end of right radius, initial encounter S52.571A Encounter type: initial encounter Fracture morphology: other intra-articular Fracture type: closed
== END 2024-02-10 14:14 | disposition skilled nursing facility (03) | DRG 522 ==
LOC: ER 12:17 → MEDSURG 12:19
PROVIDERS: Specialist; Admitting Provider Internal Medicine; Emergency Provider Family Medicine; PCP Nurse Practitioner Family; Visit Provider Student in an Organized Health Care Education/Training Program
PROC: 0PSH04Z Reposition Right Radius with Internal Fixation Device, Open Approach (ICD-10-PCS; CPT 27125; principal; 2024-02-08 08:00)
PROC: 0PSH04Z Reposition Right Radius with Internal Fixation Device, Open Approach (ICD-10-PCS; 2024-02-08 08:00)
DX: S72.011A Unspecified intracapsular fracture of right femur, initial encounter for closed fracture (principal); S52.591A Other fractures of lower end of right radius, initial encounter for closed fracture; M62.82 Rhabdomyolysis; W10.9XXA Fall (on) (from) unspecified stairs and steps, initial encounter; I10 Essential (primary) hypertension; Z66 Do not resuscitate; K21.9 Gastro-esophageal reflux disease without esophagitis
CPT/HCPCS: 36415; 51702; 70450; 71045; 72125; 72170; 73110; 73130; 73502; 73552; 73562; 73700; 76000; 80048; 80053; 81001; 82550; 83735; 84484; 85025; 85610; 87426; 93005; 93970; 94664; 96372; 97110; 97116; 97161; 97167; 97530; 99285; C1713; C1776; J0131; J0330; J0690; J1100; J1170; J1650; J2270; J2371; J2405; J2704; J2710; J2795; J3010; J3370; J3490; J7030; L3908; P9045